=== PATIENT | male | born 1955 | race Caucasian/White ===

== ENCOUNTER 2023-06-02 14:17 | Emergency (ER) | payer BC ==
[~2023-06-02] VITALS: Ht 170.2 cm; Wt 68.0 kg
[2023-06-02] MEDS ORDERED: LISINOPRIL 10 MG (14:31)
[2023-06-02] MEDS ORDERED: ATORVASTATIN CA10 M1 PO (14:31)
[2023-06-02] MEDS ORDERED: INSULIN GL100 UNIT/2 SQ (14:31)
[2023-06-02] MEDS ORDERED: METF500 PO (14:32)
[2023-06-02 15:33] LABS: Calcium, Blood 10.1 mg/dL (8.5-10.1); Creatinine, Blood 0.82 mg/dL (0.60-1.20); Potassium, Blood 4.1 mmol/L (3.5-5.5)
[2023-06-02 16:58] VITALS: BP 122/63
== END 2023-06-02 16:59 | disposition home or self-care (01) ==
LOC: ER 14:17
PROVIDERS: Student in an Organized Health Care Education/Training Program
DX: R55 Syncope and collapse (principal); E11.9 Type 2 diabetes mellitus without complications; E86.0 Dehydration; R00.0 Tachycardia, unspecified; I10 Essential (primary) hypertension; E78.5 Hyperlipidemia, unspecified; Z20.822 Contact with and (suspected) exposure to COVID-19; Z79.4 Long term (current) use of insulin; Z79.84 Long term (current) use of oral hypoglycemic drugs; Z79.899 Other long term (current) drug therapy
CPT/HCPCS: 80048; 82947; 93005; 93010; 99284-25

== ENCOUNTER 2023-06-19 23:40 | Emergency (ER) | payer BC ==
[~2023-06-19] VITALS: Ht 182.9 cm; Wt 104.3 kg
[~2023-06-19 23:40] MED LIST: ATORVASTATIN CA10 M1 PO; INSULIN GL100 UNIT/2 SQ; LISINOPRIL 10 MG; METF500 PO
[2023-06-19 23:56] VITALS: BP 167/102
[2023-06-20 00:16] LABS: Source, Urine Clean Catch
[2023-06-20 00:28] LABS: Bilirubin, Urine Neg (Neg); Blood, Urine 2+ (Neg); Glucose Qualitative, Urine 4+ (Neg); Ketones, Urine 3+ (Neg); Leukocyte Esterase, Urine Neg (Neg); Nitrite, Urine Neg (Neg); Protein, Urine 2+ (Neg); Urobilinogen, Urine NORM (Normal)
[2023-06-20 00:29] LABS: Appearance, Urine Clear (Clear); Color, Urine Yellow (P-Yellow)
[2023-06-20 00:35] LABS: Bacteria Not Seen /hpf; Red Blood Cells, Urine 0-2 /hpf (0-2); Squamous Epithelial Cells Not Seen /hpf (Few); White Blood Cells, Urine Not Seen /hpf (0-5)
[2023-06-20 00:57] LABS: U Amphetamine Screen Not Detected; U Barbituate Screen Not Detected; U Benzodiazapine Screen Not Detected; U Buprenorphine Screen Not Detected; U Cannabinoids Screen Not Detected; U Cocaine Screen Not Detected; U Methadone Screen Not Detected; U Methamphetamine Screen Not Detected; U Opiates Screen Not Detected; U Oxycodone Screen Not Detected; U Phencyclidine Screen Not Detected; U Propoxyphene Screen Not Detected
[2023-06-20 00:58] LABS: BASOPHILS ABSOLUTE AUTO 0.06 K/mm3 (0.00-0.23); BASOPHILS PERCENT AUTO 1 % (0-2); EOSINOPHILS ABSOLUTE AUTO 0.09 K/mm3 (0.00-0.68); EOSINOPHILS PERCENT AUTO 1 % (0-6); Hematocrit 40.8 % (37.0-53.0); IMMATURE GRAN ABSOLUTE AUTO 0.02 K/mm3 (0.00-0.10); IMMATURE GRAN PERCENT AUTO 0 % (0-1); LYMPHOCYTES ABSOLUTE AUTO 2.74 K/mm3 (0.84-5.20); LYMPHOCYTES PERCENT AUTO 42 % (21-46); MONOCYTES ABSOLUTE AUTO 0.91 K/mm3 (0.16-1.47); MONOCYTES PERCENT AUTO 14 % (4-13); Mean Corpuscular HGB 32.3 pg (26.0-34.0); Mean Corpuscular HGB Conc 34.3 g/dL (31.5-36.5); Mean Corpuscular Volume 94 fL (80-100); Mean Platelet Volume 10.7 fL (9.1-12.4); NEUTROPHILS ABSOLUTE AUTO 2.72 K/mm3 (1.96-9.15); NEUTROPHILS PERCENT AUTO 42 % (41-73); Platelet Count 239 K/mm3 (150-400); RDW Coefficient Variation 13.5 % (11.7-14.2); RDW Standard Deviation 47.4 fL (35.1-46.3); Red Blood Cell Count 4.33 M/mm3 (4.30-5.90); White Blood Cell Count 6.54 K/mm3 (4.00-11.30)
[2023-06-20 01:27] LABS: Salicylate 2.8 mg/dL (2.8-20.0); Thyroid Stimulating Hormone 0.532 uIU/mL (0.360-4.800); Thyroxine (T4) 4.6 ug/dL (4.5-12.1)
[2023-06-20 01:28] LABS: Alanine Aminotransfer (ALT/SGP 101 U/L (12-78); Albumin, Blood 3.4 g/dL (3.4-5.0); Albumin/Globulin Ratio 0.8 (0.8-1.8); Alk Phos 72 U/L (50-136); Anion Gap 13 mmol/L (6-16); Aspartate Aminotrans (AST/SGOT 108 U/L (12-37); Bilirubin, Total 0.2 mg/dL (0.1-1.0); Blood Urea Nitrogen 15 mg/dL (8-24); Bun/Creatinine Ratio 18.5 (12.0-20.0); CO2, Blood 22 mmol/L (21-32); Calcium, Blood 8.5 mg/dL (8.5-10.1); Chloride, Blood 109 mmol/L (98-108); Creatinine, Blood 0.81 mg/dL (0.60-1.20); Ethanol (Alcohol), Blood, Med 360 mg/dL; Globulin, Blood 4.2 g/dL (2.2-4.0); Glomerular Filtration Rate 97 (60-); Glucose, Blood 400 mg/dL (70-99); Sodium, Blood 144 mmol/L (136-145); Total Protein, Blood 7.6 g/dL (6.4-8.2)
[2023-06-20 01:29] LABS: Acetaminophen, Random <2.0 ug/mL (10.0-30.0)
[2023-06-20] MEDS ORDERED: CHLO25 PO (01:49)
== END 2023-06-20 02:40 | disposition home or self-care (01) ==
LOC: ER 23:40
PROVIDERS: Student in an Organized Health Care Education/Training Program
DX: F10.129 Alcohol abuse with intoxication, unspecified (principal); Z79.899 Other long term (current) drug therapy; Z79.4 Long term (current) use of insulin; Z79.84 Long term (current) use of oral hypoglycemic drugs; E11.9 Type 2 diabetes mellitus without complications
CPT/HCPCS: 80053; 81001; 84436; 84443; 85025; 93005; 93010; 99284-25; G0480

== ENCOUNTER 2023-06-21 10:47 | Emergency (ER) | payer BC ==
[~2023-06-21] VITALS: Ht 167.6 cm; Wt 77.1 kg
[~2023-06-21 10:47] MED LIST changes: +CHLO25 PO
[2023-06-21 11:14] LABS: Hematocrit 42.1 % (37.0-53.0); Hemoglobin 14.5 g/dL (13.5-17.5); Mean Corpuscular HGB 32.2 pg (26.0-34.0); Mean Corpuscular HGB Conc 34.4 g/dL (31.5-36.5); Mean Corpuscular Volume 94 fL (80-100); Platelet Count 248 K/mm3 (150-400); RDW Coefficient Variation 13.3 % (11.7-14.2); RDW Standard Deviation 46.2 fL (35.1-46.3); White Blood Cell Count 8.72 K/mm3 (4.00-11.30)
[2023-06-21 11:39] LABS: BAND PERCENT MAN 19 % (0-8); BASOPHILS ABSOLUTE MAN 0.08 K/mm3 (0.00-0.23); BASOPHILS PERCENT MAN 1 % (0-2); EOSINOPHILS PERCENT MAN 0 % (0-6); LYMPHOCYTES PERCENT MAN 15 % (21-46); MONOCYTES ABSOLUTE MAN 0.69 K/mm3 (0.16-1.47); MONOCYTES PERCENT MAN 8 % (4-13); MYELOCYTE ABSOLUTE MAN 0.08 K/mm3 (0.00-0.00); MYELOCYTE PERCENT MAN 1 % (0-0); NEUTROPHILS ABSOLUTE MAN 6.54 K/mm3 (1.96-9.15); SEG NEUTROPHILS PERCENT MAN 56 % (41-73); TOTAL CELLS COUNTED 100
[2023-06-21 11:48] LABS: Alanine Aminotransfer (ALT/SGP 109 U/L (12-78); Albumin, Blood 3.6 g/dL (3.4-5.0); Albumin/Globulin Ratio 0.7 (0.8-1.8); Alk Phos 76 U/L (50-136); Anion Gap 16 mmol/L (6-16); Aspartate Aminotrans (AST/SGOT 149 U/L (12-37); Bilirubin, Total 0.5 mg/dL (0.1-1.0); Blood Urea Nitrogen 14 mg/dL (8-24); Bun/Creatinine Ratio 18.8 (12.0-20.0); CO2, Blood 20 mmol/L (21-32); Calcium, Blood 9.5 mg/dL (8.5-10.1); Chloride, Blood 99 mmol/L (98-108); Creatinine, Blood 0.75 mg/dL (0.60-1.20); Globulin, Blood 5.3 g/dL (2.2-4.0); Glomerular Filtration Rate 99 (60-); Glucose, Blood 157 mg/dL (70-99); Potassium, Blood 5.5 mmol/L (3.5-5.5); Sodium, Blood 135 mmol/L (136-145); Total Protein, Blood 8.9 g/dL (6.4-8.2)
[2023-06-21 11:49] LABS: Ethanol (Alcohol), Blood, Med <3 mg/dL
[2023-06-21 11:58] LABS: U Amphetamine Screen Not Detected; U Barbituate Screen Not Detected; U Benzodiazapine Screen Not Detected; U Buprenorphine Screen Not Detected; U Cannabinoids Screen Not Detected; U Cocaine Screen Not Detected; U Methadone Screen Not Detected; U Methamphetamine Screen Not Detected; U Opiates Screen DETECTED; U Oxycodone Screen Not Detected; U Phencyclidine Screen Not Detected; U Propoxyphene Screen Not Detected
[2023-06-21 12:02] LABS: Base Excess Venous 2.3 mmol/L; Bicarbonate Venous 26.5 mmol/L (24.0-30.0); PCO2 Venous 37.1 mmHg (38-42); pH Blood Venous 7.46 (7.34-7.37)
[2023-06-21 13:45] VITALS: BP 159/84
== END 2023-06-21 14:23 | disposition left against medical advice (07) ==
LOC: ER 10:47
PROVIDERS: Emergency Medicine
DX: R55 Syncope and collapse (principal); F10.10 Alcohol abuse, uncomplicated; Y90.0 Blood alcohol level of less than 20 mg/100 ml; F11.90 Opioid use, unspecified, uncomplicated; E11.65 Type 2 diabetes mellitus with hyperglycemia; I10 Essential (primary) hypertension; E78.5 Hyperlipidemia, unspecified; Z91.119 Patient's noncompliance with dietary regimen due to unspecified reason; Z53.29 Procedure and treatment not carried out because of patient's decision for other reasons; Z79.4 Long term (current) use of insulin; Z79.84 Long term (current) use of oral hypoglycemic drugs; Z79.899 Other long term (current) drug therapy
CPT/HCPCS: 70450; 71045; 80053; 82803; 82947; 84484; 85025; 93005; 93010; 99285-25; J7030

== ENCOUNTER 2023-07-05 11:45 | Inpatient (IN) | payer BC ==
[~2023-07-05] VITALS: Ht 175.3 cm; Wt 65.1 kg
[~2023-07-05 11:45] MED LIST changes: +INSULIN GL100 UNIT/2 SC; -INSULIN GL100 UNIT/2 SQ; +LISI10 PO; -LISINOPRIL 10 MG
[2023-07-05 14:23] LABS: BASOPHILS ABSOLUTE AUTO 0.06 K/mm3 (0.00-0.23); BASOPHILS PERCENT AUTO 0 % (0-2); EOSINOPHILS ABSOLUTE AUTO 0.02 K/mm3 (0.00-0.68); EOSINOPHILS PERCENT AUTO 0 % (0-6); Hematocrit 40.8 % (37.0-53.0); Hemoglobin 11.5 g/dL (13.5-17.5); IMMATURE GRAN ABSOLUTE AUTO 0.15 K/mm3 (0.00-0.10); IMMATURE GRAN PERCENT AUTO 1 % (0-1); LYMPHOCYTES ABSOLUTE AUTO 0.59 K/mm3 (0.84-5.20); LYMPHOCYTES PERCENT AUTO 4 % (21-46); MONOCYTES ABSOLUTE AUTO 1.58 K/mm3 (0.16-1.47); MONOCYTES PERCENT AUTO 11 % (4-13); Mean Corpuscular HGB 31.8 pg (26.0-34.0); Mean Corpuscular HGB Conc 28.2 g/dL (31.5-36.5); Mean Corpuscular Volume 113 fL (80-100); Mean Platelet Volume 11.9 fL (9.1-12.4); NEUTROPHILS ABSOLUTE AUTO 11.57 K/mm3 (1.96-9.15); NEUTROPHILS PERCENT AUTO 83 % (41-73); Platelet Count 328 K/mm3 (150-400); RDW Standard Deviation 53.7 fL (35.1-46.3); Red Blood Cell Count 3.62 M/mm3 (4.30-5.90); White Blood Cell Count 13.97 K/mm3 (4.00-11.30)
[2023-07-05 14:32] LABS: Bicarbonate Venous 5.1 mmol/L (24.0-30.0); PCO2 Venous 28.3 mmHg (38-42); PO2 Venous 63.6 mmHg (38-42); pH Blood Venous > 6.80 (7.34-7.37)
[2023-07-05 14:34] LABS: Base Excess Venous -30.3 mmol/L
[2023-07-05 14:54] LABS: Albumin, Blood 2.6 g/dL (3.4-5.0); Albumin/Globulin Ratio 0.6 (0.8-1.8); Bilirubin, Total 0.6 mg/dL (0.1-1.0); Bun/Creatinine Ratio 19.5 (12.0-20.0); Calcium, Blood 8.4 mg/dL (8.5-10.1); Creatinine, Blood 3.07 mg/dL (0.60-1.20); Ethanol (Alcohol), Blood, Med <3 mg/dL; Globulin, Blood 4.3 g/dL (2.2-4.0); Magnesium, Blood 3.3 mg/dL (1.6-2.4); Total Protein, Blood 6.9 g/dL (6.4-8.2)
[2023-07-05 16:40] LABS: Calcium, Ionized (POC) 1.21 mmol/L (1.10-1.46); Chloride (POC) 101 mmol/L (98-108); Creatinine (POC) 3.3 mg/dL (0.8-1.3); Glucose (ISTAT POC) >700 mg/dL (70-99); Hemoglobin (POC) 11.9 g/dL (13.5-17.5); Potassium (POC) 5.8 mmol/L (3.5-5.5); Sodium (POC) 130 mmol/L (135-148); Total CO2 (POC) 8 mmol/L (21-32)
[2023-07-05 17:45] LABS: International Normalized Ratio 1.03; Prothrombin Time Results 10.8 Sec (9.7-11.5)
[2023-07-05 18:14] LABS: Albumin, Blood 2.4 g/dL (3.4-5.0); Anion Gap 33 mmol/L (6-16); Blood Urea Nitrogen 63 mg/dL (8-24); Bun/Creatinine Ratio 21.8 (12.0-20.0); CO2, Blood 8 mmol/L (21-32); Calcium, Blood 8.6 mg/dL (8.5-10.1); Chloride, Blood 95 mmol/L (98-108); Creatinine, Blood 2.89 mg/dL (0.60-1.20); Glomerular Filtration Rate 23 (60-); Glucose, Blood 752 mg/dL (70-99); Potassium, Blood 5.8 mmol/L (3.5-5.5); Sodium, Blood 136 mmol/L (136-145)
[2023-07-05 20:02] LABS: Source, Urine Foley catheter
[2023-07-05 20:13] LABS: Appearance, Urine Hazy (Clear); Bilirubin, Urine Neg (Neg); Blood, Urine 5+ (Neg); Color, Urine Yellow (P-Yellow); Glucose Qualitative, Urine 4+ (Neg); Ketones, Urine 4+ (Neg); Leukocyte Esterase, Urine Neg (Neg); Nitrite, Urine Neg (Neg); Protein, Urine 3+ (Neg); Urobilinogen, Urine NORM (Normal)
[2023-07-05 20:23] LABS: Amorphous Light (0-Heavy); Granular Casts 0-2 /lpf (0); Hyaline Casts 0-2 /lpf (0-2); Red Blood Cells, Urine 0-2 /hpf (0-2); Squamous Epithelial Cells Not Seen /hpf (Few); White Blood Cells, Urine 0-2 /hpf (0-5)
[2023-07-05 20:24] LABS: Bacteria Few /hpf
[2023-07-05 20:45] LABS: Magnesium, Blood 2.5 mg/dL (1.6-2.4)
[2023-07-05 20:53] LABS: U Amphetamine Screen Not Detected; U Barbituate Screen Not Detected; U Benzodiazapine Screen Not Detected; U Buprenorphine Screen Not Detected; U Cannabinoids Screen Not Detected; U Cocaine Screen Not Detected; U Methadone Screen Not Detected; U Methamphetamine Screen Not Detected; U Opiates Screen Not Detected; U Oxycodone Screen Not Detected; U Phencyclidine Screen Not Detected; U Propoxyphene Screen Not Detected
[2023-07-05 21:06] LABS: Albumin, Blood 2.3 g/dL (3.4-5.0); Anion Gap 21 mmol/L (6-16); Blood Urea Nitrogen 60 mg/dL (8-24); CO2, Blood 13 mmol/L (21-32); Calcium, Blood 7.7 mg/dL (8.5-10.1); Chloride, Blood 107 mmol/L (98-108); Creatinine, Blood 2.61 mg/dL (0.60-1.20); Glomerular Filtration Rate 26 (60-); Glucose, Blood 558 mg/dL (70-99); Phosphorus, Blood 3.9 mg/dL (2.5-4.9); Potassium, Blood 4.7 mmol/L (3.5-5.5); Sodium, Blood 141 mmol/L (136-145)
[2023-07-06] VITALS (39 sets, daily range): BP systolic 104–191; BP diastolic 36–144
[2023-07-06 01:46] LABS: Albumin, Blood 2.2 g/dL (3.4-5.0); Anion Gap 13 mmol/L (6-16); Blood Urea Nitrogen 63 mg/dL (8-24); Bun/Creatinine Ratio 25.6 (12.0-20.0); CO2, Blood 18 mmol/L (21-32); Calcium, Blood 7.7 mg/dL (8.5-10.1); Chloride, Blood 114 mmol/L (98-108); Creatinine, Blood 2.46 mg/dL (0.60-1.20); Glomerular Filtration Rate 28 (60-); Glucose, Blood 288 mg/dL (70-99); Magnesium, Blood 2.2 mg/dL (1.6-2.4); Phosphorus, Blood 1.9 mg/dL (2.5-4.9); Potassium, Blood 4.3 mmol/L (3.5-5.5); Sodium, Blood 145 mmol/L (136-145)
[2023-07-06 06:46] LABS: Magnesium, Blood 2.3 mg/dL (1.6-2.4)
[2023-07-06 06:48] LABS: Albumin, Blood 2.3 g/dL (3.4-5.0); Albumin/Globulin Ratio 0.6 (0.8-1.8); Bilirubin, Total 0.3 mg/dL (0.1-1.0); Bun/Creatinine Ratio 27.4 (12.0-20.0); Calcium, Blood 8.3 mg/dL (8.5-10.1); Creatinine, Blood 2.3 mg/dL (0.60-1.20); Globulin, Blood 3.7 g/dL (2.2-4.0); Phosphorus, Blood 1.5 mg/dL (2.5-4.9)
--- NOTE | 2023-07-06 09:00 | NUR ---
INITIAL ASSESSMENT PATIENT ARRIVED FROM ED AT 0835. PATIENT RESPONDING TO NOXIOUS STIMULI. PATIENT RESTLESS AND FIDGETY IN BED. PATIENT HAS MUMBLED SPEECH AT TIMES WHEN NOXIOUS STIMULI APPLIED OR NURSES PROVIDING CARE. CIWA SCORE OF 8. PATIENT HAS TEMP OF 99.3 DEGREES FAHRENHEIT. LUNGS COARSE THROUGHOUT. PATIENT ON 8 L OXYMASK TO KEEP SATS 90% AND GREATER. PATIENT HAS OCCASIONAL, MOIST, NONPRODUCTIVE COUGH. PATIENT IN SR, HR IN THE LOW 100S. SBP IN THE 130S. PATIENT NPO. FLYNN DRAINING YELLOW COLORED URINE. FACE FLUSHED. LARGE BRUISE TO R FOWLER. D5 1/2 NS INFUSING AT 150 MLS/ HOUR AND INSULIN DRIP INFUSING AT 1 UNIT/ HOUR. PATIENT RECEIVING 30 MM KPHOS REPLACEMENT AT THIS TIME. BED LOW, CALL LIGHT IN REACH. CARE CONTINUES.
[2023-07-06 09:12] LABS: BASOPHILS ABSOLUTE AUTO 0.03 K/mm3 (0.00-0.23); BASOPHILS PERCENT AUTO 0 % (0-2); EOSINOPHILS ABSOLUTE AUTO 0.01 K/mm3 (0.00-0.68); EOSINOPHILS PERCENT AUTO 0 % (0-6); Hematocrit 36.3 % (37.0-53.0); Hemoglobin 12.2 g/dL (13.5-17.5); IMMATURE GRAN ABSOLUTE AUTO 0.13 K/mm3 (0.00-0.10); IMMATURE GRAN PERCENT AUTO 1 % (0-1); LYMPHOCYTES ABSOLUTE AUTO 0.44 K/mm3 (0.84-5.20); LYMPHOCYTES PERCENT AUTO 3 % (21-46); MONOCYTES ABSOLUTE AUTO 1.37 K/mm3 (0.16-1.47); MONOCYTES PERCENT AUTO 8 % (4-13); Mean Corpuscular HGB 31.6 pg (26.0-34.0); Mean Corpuscular HGB Conc 33.6 g/dL (31.5-36.5); NEUTROPHILS ABSOLUTE AUTO 14.64 K/mm3 (1.96-9.15); NEUTROPHILS PERCENT AUTO 88 % (41-73); Platelet Count 257 K/mm3 (150-400); RDW Coefficient Variation 12.7 % (11.7-14.2); RDW Standard Deviation 43.6 fL (35.1-46.3); Red Blood Cell Count 3.86 M/mm3 (4.30-5.90); White Blood Cell Count 16.62 K/mm3 (4.00-11.30)
[2023-07-06 09:16] LABS: Mean Corpuscular Volume 94 fL (80-100)
[2023-07-06 09:36] LABS: Albumin, Blood 2.4 g/dL (3.4-5.0); Anion Gap 9 mmol/L (6-16); Blood Urea Nitrogen 65 mg/dL (8-24); CO2, Blood 22 mmol/L (21-32); Calcium, Blood 8.4 mg/dL (8.5-10.1); Chloride, Blood 118 mmol/L (98-108); Creatinine, Blood 2.24 mg/dL (0.60-1.20); Glomerular Filtration Rate 31 (60-); Glucose, Blood 208 mg/dL (70-99); Magnesium, Blood 2.3 mg/dL (1.6-2.4); Phosphorus, Blood 1.8 mg/dL (2.5-4.9); Potassium, Blood 4.1 mmol/L (3.5-5.5); Sodium, Blood 149 mmol/L (136-145)
--- NOTE | 2023-07-06 12:00 | NUR ---
TEMP 99.5 DEGREES FAHRENHEIT. HR IN THE LOW 100S. SBP 170S TO 190S. CIWA 11. PRN PHENOBARBITOL GIVEN.
--- NOTE | 2023-07-06 15:45 | NUR ---
PATIENT HAS TEMP OF 99.0 DEGREES FAHRENHEIT. HR IN THE LOW 100S. SBP IN THE 1-TEENS. INSULIN AT 2 UNITS/ HOUR. PATIENT DECREASED FROM 8 TO 6 L OXYMASK. CIWA SCORE OF 8. NO OTHER ACUTE CHANGES TO NOTE ON AT THIS TIME. BED LOW, CALL LIGHT IN REACH. CARE CONTINUES.
--- NOTE | 2023-07-06 19:00 | NUR ---
ASSUMED CARE OF PT AT THIS TIME. PT ANXIOUS IN BED WITH BUE RESTRAINTS INTACT. PT IS WIGGLING AND MOVING HEAD BACK AND FORTH. MINIMAL BEHAVIORS AT THIS TIME. WILL NEED CONSISTENT BOOSTING AND MONITORING FOR LINES AND CORD PROTECTION. SEE FULL ASSESSMENT FOR FURTHER INFORMATION.
--- NOTE | 2023-07-06 19:07 | NUR ---
SHIFT SUMMARY PATIENT REMAINED RESPONDING TO NOXIOUS STIMULI. PATIENT RESTLESS IN BED AT TIMES. CIWAS UP TO 18 THIS SHIFT. PRN PHENOBARBITAL GIVEN 3 TIMES. PATIENT HAD TMAX OF 99.5 DEGREES FAHRENHEIT. PATIENT ON 6 TO 8 L OXYMASK THIS SHIFT. COARSE LUNGS AND COARSE. PATIENT SR TO ST, HR 90S TO 1-TEENS. SBP LOW 100S TO 190S. NO BM THIS SHIFT. PATIENT REMAINED NPO. 2450 MLS OF URINE OUT FROM FLYNN THIS SHIFT. NO CHANGES TO SKIN NOTED. NS AT 125 MLS/ HOUR. PATIENT GIVEN LONG ACTING INSULIN AND INSULIN DRIP WILL BE SHUT OFF AFTER AN HOUR. PATIENT RECEIVED KPHOS REPLACEMENT THIS AM. BED LOW, CALL LIGHT IN REACH. REPORT GIVEN TO ONCOMING SERVICE ATTENDANT CAFETERIA NURSE.
[2023-07-07] VITALS (48 sets, daily range): BP systolic 82–197; BP diastolic 56–119
[2023-07-07 04:32] LABS: Hematocrit 34.5 % (37.0-53.0); Hemoglobin 11.6 g/dL (13.5-17.5); Mean Corpuscular HGB Conc 33.6 g/dL (31.5-36.5); Mean Corpuscular Volume 95 fL (80-100); Mean Platelet Volume 11.6 fL (9.1-12.4); Platelet Count 197 K/mm3 (150-400); RDW Coefficient Variation 13.2 % (11.7-14.2); RDW Standard Deviation 46.1 fL (35.1-46.3); Red Blood Cell Count 3.62 M/mm3 (4.30-5.90); White Blood Cell Count 9.87 K/mm3 (4.00-11.30)
[2023-07-07 04:57] LABS: Albumin, Blood 2.1 g/dL (3.4-5.0); Albumin/Globulin Ratio 0.6 (0.8-1.8); Bilirubin, Total 0.2 mg/dL (0.1-1.0); Bun/Creatinine Ratio 29.2 (12.0-20.0); Creatinine, Blood 1.61 mg/dL (0.60-1.20); Globulin, Blood 3.6 g/dL (2.2-4.0); Magnesium, Blood 2.1 mg/dL (1.6-2.4); Phosphorus, Blood 2.9 mg/dL (2.5-4.9); Potassium, Blood 3.7 mmol/L (3.5-5.5); Total Protein, Blood 5.7 g/dL (6.4-8.2)
--- NOTE | 2023-07-07 06:09 | NUR ---
END OF SHIFT SUMMARY PT THRASHES IN BED PULLING AT RESTRAINTS. DOES NOT ANSWER ANY QUESTIONS, JUST MUMBLES AND GROANS INTERMITTENTLY. PHENOBARB GIVEN WITH LITTLE RESULTS W/CIWA 8-16. PRECEDEX STARTED AND CURRENTLY AT 0.5 AT THIS TIME. VSS WITH NO ACUTE CHANGES THIS SHIFT. WILL CONTINUE TO MONITOR UNTIL REPORT GIVEN TO AM RN.
--- NOTE | 2023-07-07 08:00 | NUR ---
INITIAL ASSESSMENT PATIENT RESPONDING TO VERBAL STIMULI WITH MOVEMENT OF HEAD. PATIENT RESTLESS AT TIMES. PATIENT HAS MUMBLED SPEECH AT TIMES. PATIENT HAS TEMP OF 100.0 DEGREES FAHRENHEIT THIS AM. LUNGS CLEAR THROUGHOUT. PATIENT HAS OCCASIONAL, MOIST COUGH. PATIENT ON 7 L OXYMASK TO KEEP SATS 90% AND GREATER. PATIENT IN SR, HR 70S TO 80S. SBP IN THE 140S. ABD MILDLY DISTENDED, SOFT, WITH NORMOACTIVE BOWEL SOUNDS NOTED. PATIENT NPO AT THIS TIME. FLYNN DRAINING YELLOW COLORED URINE. FACE FLUSHED. BRUISE NOTED TO R LEG. NS INFUSING AT 125 MLS/ HOUR. PRECEDEX AT 0.5 MCG/ KG/ HOUR. BED LOW, CALL LIGHT IN REACH. CARE CONTINUES.
--- NOTE | 2023-07-07 12:00 | NUR ---
PATIENT AFEBRILE. HR IN THE 80S. SBP 130S TO 150S. PATIENT ON 6 L NC TO KEEP SATS 90% AND GREATER. PATIENT REMAINS ON PRECEDEX DRIP. NO OTHER ACUTE CHANGES TO NOTE ON AT THIS TIME. BED LOW, CALL LIGHT IN REACH. CARE CONTINUES.
--- NOTE | 2023-07-07 15:37 | NUR ---
PATIENT HAS TEMP OF 100.8 DEGREES FAHRENHEIT. PRECEDEX TO 0.7 MCG/ KG/ HOUR FOR CIWA OF 18. HR IN THE LOW 100S. SBP IN THE 150S. BLOOD SUGAR OF 226. BED LOW, CALL LIGHT IN REACH. CARE CONTINUES.
--- NOTE | 2023-07-07 18:47 | NUR ---
SHIFT SUMMARY PATIENT REMAINED EITHER SLEEPING SOUNDLY OR RESTLESS AND FIGHTING RESTRAINTS AND TRYING TO GET OUT OF BED. PATIENT HAS REMAINED ON PRECEDEX RANGING FROM 0.3 TO 0.7 MCG/ KG/ HOUR. PATIENT CURRENTLY ON PRECEDEX AT 0.5 MCG/ KG/ HOUR. HIGHEST CIWA WAS 18 THIS SHIFT. PATIENT GIVEN WI TYLENOL ONCE THIS SHIFT. PATIENT HAD HIGH TEMP OF 100.8 DEGREES FAHRENHEIT. PATIENT ON O2 FROM 6 L NC UP TO 15 L OXYMASK THIS SHIFT. PATIENT CURRENTLY ON 7 L OXYMASK TO KEEP SATS 90% AND GREATER. PATIENT CONTINUES TO HAVE MOIST, NONPRODUCTIVE COUGH. HR 70S TO 130S. TACHCARDIC WHEN AGITATED. SBP 80S TO 190S. HTN WHEN AGITATED AND FLAILING AROUND BED. 1 BM THIS SHIFT. PATIENT REMAINED NPO. FLYNN DRAINED 3950 MLS OF YELLOW COLORED URINE THIS SHIFT. PATIENT HAD SEVERAL IVS GO BAD IN BILAT ARMS; BRUISES NOTED. 2 PGS PLACED THIS SHIFT; GOOD BLOOD RETURN. LR INFUSING AT 100 MLS/ HOUR. NS TKO. LONG ACTING INSULIN INCREASED FROM DAILY TO BID THIS SHIFT. PATIENT HAD COMPLETE BEDBATH. BLOOD SUGARS STAYED IN 200S. BED LOW, CALL LIGHT IN REACH. REPORT WILL BE GIVEN TO ASSUMING HOMOEOPATH NURSE SHORTLY.
--- NOTE | 2023-07-07 19:09 | NUR ---
ASSUMED CARE OF PT AT PT RESTLESS IN BED MOVING HEAD AND FEAT CONSTANTLY. VSS. O2 INCREASED TO 8 LPM VIA OXY MASK D/T 90% SATS AT THIS TIME. RR 20'S. SEE FULL ASSESSMENT FOR FURTHER INFORMATION.
--- NOTE | 2023-07-07 19:30 | NUR ---
CALLED PT SPOUSE SAURAV MEJIA BACK. SHE WAS WANTING AN UPDATE ON HOW PT WAS DOING. SHE WAS INFORMED OF PT MENTATION AND WHAT WE ARE DOING FOR TREATMENT AT THIS TIME. PHONE CALL WAS VERY SHORT WITH MINIMAL TALKING.
[2023-07-08] VITALS (46 sets, daily range): BP systolic 83–159; BP diastolic 57–97
[2023-07-08 04:05] LABS: Albumin, Blood 2.5 g/dL (3.4-5.0); Albumin/Globulin Ratio 0.5 (0.8-1.8); Bilirubin, Total 0.4 mg/dL (0.1-1.0); Calcium, Blood 9.1 mg/dL (8.5-10.1); Creatinine, Blood 1.39 mg/dL (0.60-1.20); Globulin, Blood 4.7 g/dL (2.2-4.0); Phosphorus, Blood 1.5 mg/dL (2.5-4.9); Potassium, Blood 2.9 mmol/L (3.5-5.5); Total Protein, Blood 7.2 g/dL (6.4-8.2)
--- NOTE | 2023-07-08 04:32 | NUR ---
NT SUCTION INITIATED WITH LITTLE RESULTS D/T PT BEING UNCOOPERATIVE. PT SATS IN MID 80'S WITH EXERTION. 2 DOSES OF PHENOBARB GIVEN IWTH LITTLE RESULTS FOR CIWA OF 16 AND PT IS UNCOOPERATIVE WITH CARE. PT YELLING OUT AND TRYING TO GET OUT OF BED. BUE RESTRAINTS IN PLACE AT THIS TIME. WILL CONTINUE TO MONITOR. SPO2 CURRENTLY AT 92% AFTER NT SUCTION DONE BY THIS RN AND FIDEL CASTILLO.
--- NOTE | 2023-07-08 05:37 | NUR ---
END OF SHIFT SUMMARY PT HAS BEEN IN AND OUT OF SLEEP/ THRASHING IN BED CYCLES. DOES NOT FOLLOW COMMANDS. CIWA RANGING 0-16 THIS SHIFT. MOSTLY AGITATION, SWEATING, AND TREMORS PRESENT. NO VISITORS THIS SHIFT. SPOUSE DID CALL FOR UPDATE. PT YELLS OUT WHEN MOVING LEGS BACK IN BED AND IS VERY STIFF WITH MOVEMENT. ORDER FOR FENTYNAL ACHIEVED AND GIVEN WITH LITTLE RESULTS. CARDIAC- DIFFICULT TO ACHIEVE BELEIVABLE BP D/T PT UNWILLING TO LAY STILL WITH BP CUFF INFLATIONS. HR 90'S AND SR. RESP- CURRENTLY RANGING 90-95% SPO2 ON 15 L OXYMASK. SATS DEPEND ON PT MOVEMENTS IN BED. RR 20'S. GI,- NPO. NO BM THIS SHIFT. SEE I/O CHARTING FOR URINE OUTPUT. NO OTHER ACUTE ISSUES TO REPORT AT THIS TIME. WILL CONTINUE TO MONITOR UNTIL REPORT GIVEN TO AM ANNA.
[2023-07-08 08:49] LABS: PCO2 Arterial 36.6 mmHg (35-45)
--- NOTE | 2023-07-08 08:51 | NUR ---
AM NOTE.... ASSUMED CARE OF PT AT 0700, PT IS CONFUSED AND UNCOOPERATIVE WITH CARE. PT IS UNABLE TO FOLLOW ANY COMMANDS OR ANSWER ANY QUESTIONS. HE IS ON PRECEDEX AT 0.7MCG/KG/HR AT THIS DOSE HE IS THRASHING AROUND THE BED AND ATTEMPTING TO PULL ON ALL CORDS/LINES. HE IS ON 15L OXYMASK WITH O2 SATS IN THE LOW 90'S. L/S CLEAR IN THE UPPER LOBES WITH FINE CRACKLES NOTED IN THE RML, RLL AND LLL.HE IS IN SR/ST IN THE 70'S-100'S BP IS STABLE AT THIS TIME WITH MAPS>65. BT PRESENT AND HYPOACTIVE, ABD IS FIRM TO PALPATION. FLYNN IS PATENT AND DRAINING TO GRAVITY. WILL CONTINUE TO MONITOR.
[2023-07-08 13:20] LABS: Source, Urine Foley catheter
[2023-07-08 13:23] LABS: Bilirubin, Urine Neg (Neg); Blood, Urine 3+ (Neg); Color, Urine Yellow (P-Yellow); Glucose Qualitative, Urine 4+ (Neg); Ketones, Urine 2+ (Neg); Leukocyte Esterase, Urine 1+ (Neg); Nitrite, Urine Neg (Neg); Protein, Urine 2+ (Neg); Specific Gravity, Urine 1.015 (1.003-1.022); Urobilinogen, Urine NORM (Normal)
[2023-07-08 13:29] LABS: Appearance, Urine Hazy (Clear)
[2023-07-08 13:34] LABS: Bacteria Rare /hpf; Mucus Mod (0-Heavy); Squamous Epithelial Cells Rare /hpf (Few)
[2023-07-08 15:00] LABS: Adenovirus Not Detected (NOT DETECT); Coronavirus 229E Not Detected (NOT DETECT); Coronavirus HKU1 Not Detected (NOT DETECT); Coronavirus NL63 Not Detected (NOT DETECT); Coronavirus OC43 Not Detected (NOT DETECT); Human Metapneumovirus Not Detected (NOT DETECT); Human Rhinovirus/Enterovirus Not Detected (NOT DETECT); Influenza A/2009-H1 Not Detected (NOT DETECT); Influenza A/H1 Not Detected (NOT DETECT); Influenza A/H3 Not Detected (NOT DETECT); Influenza B Not Detected (NOT DETECT); Parainfluenza Virus 1 Not Detected (NOT DETECT); Parainfluenza Virus 2 Not Detected (NOT DETECT); Parainfluenza Virus 3 Not Detected (NOT DETECT); SARS-Cov-2 (COVID-19), BioFire Not Detected (NOT DETECT)
[2023-07-08 15:01] LABS: Bordetella pertussis Not Detected (NOT DETECT); Chlamydophila pneumoniae Not Detected (NOT DETECT); Mycoplasma pneumoniae Not Detected (NOT DETECT); Parainfluenza Virus 4 Not Detected (NOT DETECT); Respiratory Syncytial Virus Not Detected (NOT DETECT)
[2023-07-08 15:12] LABS: Albumin, Blood 2.2 g/dL (3.4-5.0); Anion Gap 5 mmol/L (6-16); Blood Urea Nitrogen 29 mg/dL (8-24); Bun/Creatinine Ratio 20.6 (12.0-20.0); CO2, Blood 35 mmol/L (21-32); Calcium, Blood 8.8 mg/dL (8.5-10.1); Chloride, Blood 116 mmol/L (98-108); Creatinine, Blood 1.41 mg/dL (0.60-1.20); Glomerular Filtration Rate 55 (60-); Glucose, Blood 110 mg/dL (70-99); Phosphorus, Blood 3.5 mg/dL (2.5-4.9); Potassium, Blood 2.8 mmol/L (3.5-5.5); Sodium, Blood 156 mmol/L (136-145)
--- NOTE | 2023-07-08 17:21 | NUR ---
SHIFT SUMMARY... THE PT CONTINUES TO BE ON A PRECEDEX DRIP 1-1.4MCG/KG/HR. PT HAS CWIA SCORES 16-18 AND MEDICATED PER EMAR. THE PT CONTINUES TO BE ON A OXYMIZER 8-15L TO KEEP O2 SATS>89%. L/S CONTINUE TO BE CLEAR IN THE UPPER LOBES WITH CRACKLES NOTED IN THE BASES. FLYNN IS PATENT AND DRAINING TO GRAVITY. NO BM THIS SHIFT. A DOBHOFF WAS PLACED TO START TUBE FEEDS PER ORDERS. RESTRAINTS IN PLACE TO KEEP THE PT FROM PULLING OUT LINES AND FEEDING TUBE. WILL CONTINUE TO MONITOR UNTIL REPORT IS GIVEN TO ONCOMING RN.
--- NOTE | 2023-07-08 18:11 | NUR ---
TUBE FEEDS STARTED.... TUBE FEEDS STARTED AT 1800 PER ORDERS.
--- NOTE | 2023-07-08 19:18 | NUR ---
ASSUMED CARE OF PT AT 1900 PT RESTING QUIETLY IN BED WITH NO VISITORS. DESATING TO MID 80'S WHILE SLEEPING. OXYMIZER SET TO 12 LPM FROM 7 LPM TO HOLE SPO2 >90%. SEE FULL ASSESSMENT FOR FURTHER INFORMATION.
--- NOTE | 2023-07-08 21:12 | NUR ---
PT DESATING TO MID 80'S WITH NO RELIEF. CALLED [facility] AND ONTAINED ORDER FOR HEATED HIGH FLOW NC. RT SET UP AND PT IS NOW 50 LPM AT 90%. SPO2 >90% AT THIS TIME.
[2023-07-09] VITALS (92 sets, daily range): BP systolic 99–206; BP diastolic 65–128
--- NOTE | 2023-07-09 01:42 | NUR ---
ASSUMED CARE OF PT AT 0130 THIS MORNING. REPORT RECEIVED. PT PRESENTS IN BED ASLEEP. WILL ASSESS WITH 0200 BLOOD GLUCOSE LEVEL. WILL REVIEW CHART AND PLAN OF CARE FOR THIS PT.
[2023-07-09 04:50] LABS: Albumin, Blood 1.9 g/dL (3.4-5.0); Albumin/Globulin Ratio 0.5 (0.8-1.8); Bilirubin, Total 0.3 mg/dL (0.1-1.0); Creatinine, Blood 1.22 mg/dL (0.60-1.20); Magnesium, Blood 1.8 mg/dL (1.6-2.4); Phosphorus, Blood 1.5 mg/dL (2.5-4.9); Potassium, Blood 3.2 mmol/L (3.5-5.5); Total Protein, Blood 5.9 g/dL (6.4-8.2)
--- NOTE | 2023-07-09 06:32 | NUR ---
PT HAS TOLERATED TURNS Q 2 HOURS. HAS REQUIRED SEVERAL DOSES OF 2 MG LORAZEPAM. PRECEDEX DRIP CONTINUES AT 0.7 MCG'S/KG/HOUR. TOLERATING TUBE FEEDING AT GOAL. Q 2 HOUR BLOOD GLUCOSE CONTINUES. WILL CONTINUE TO MONITOR PT, AND WILL REPORT OFF TO ONCOMING RN.
--- NOTE | 2023-07-09 07:46 | NUR ---
AM NOTE... ASSUMED CARE OF PT AT 0700. PT IS ON PRECEDEX DRIP AT 0.7MCG/KG/HR WITH PRN IV ATIVAN PUSHES. HE IS NOW ON AIRVO AT 45L AND 65% WITH O2 SATS>90% L/S CLEAR IN THE UPPER LOBES COARSE IN THE LOWER LOBES. RR IS IN THE HIGH 20'S TO 30'S. HE IS IN SR IN THE 90'S BP IS STABLE WITH MAPS>65 HE BECOMES HYPERTENSIVE WHEN AGITATED. NG TUBE IS PATENT AT 65 WITH TUBE FEEDS RUNNING PER ORDERS AT 30MLS/HR WHICH IS THE GOAL RATE. BT PRESENT AND HYPOACTIVE, ABD IS SOFT TO PALPATION. PT IS DIAPHORETIC WITH A TEMP OF 101.2. WILL CONTINUE TO MONITOR.
[2023-07-09 16:57] LABS: Phosphorus, Blood 2.1 mg/dL (2.5-4.9); Potassium, Blood 2.9 mmol/L (3.5-5.5)
--- NOTE | 2023-07-09 18:21 | NUR ---
SHIFT SUMMARY.... PT'S PRECEDEX DRIP HAS BEEN OFF FOR SEVERAL HOURS AND PT HAS BEEN DOING WELL WITH PRN ATIVAN IV PUSHES. THE PT CONTINUES TO BE CONFUSED, UNABLE TO FOLLOW ANY COMMANDS OR TRACK MOVEMENT BUT WHEN AGITATED WILL PULL ON ALL THE LINES/TUBES HE IS ABLE TO GRAB. THE PT'S TUBE FEEDS ARE RUNNING PER ORDERS AT 20MLS/HR WITH 200MLS/Q4. TMAX THIS SHIFT WAS 102.3 HE WAS GIVEN TYLENOL PER EMAR. PT HAS NOT HAD A BM THIS SHIFT, STOOL SOFTNERS WERE STARTED TODAY. PT BECAME VERY HYPERTENSIVE THIS AFTERNOON WITH SBPs IN THE 190'S PROVIDER WAS NOTIFIED AND NEW ORDERS WERE GIVEN FOR PRN AND SCHEDULED HYPERTENSIVE MEDICATIONS. WILL CONTINUE TO MONITOR UNTIL REPORT IS GIVEN TO ONCOMING RN.
--- NOTE | 2023-07-09 20:00 | NUR ---
ASSUMED CARE OF PT AT 1900. REPORT RECEIVED AT BEDSIDE. PT PRESENTS IN BED. RESTING AT THIS TIME. HAS AIRVO AT 45 L/M WITH 61% FIO2. PT BECOMING RESTLESS. SOME ELEVATION IN BLOOD PRESSURE. WILL REVIEW CHART AND PLAN OF CARE FOR THIS PT.
--- NOTE | 2023-07-09 21:41 | NUR ---
ADMINISTERED 20 MG LABTELOL FOR ELEVATING BLOOD PRESSURES. PT REMAINS SOMEWHAT RESTLESS. PULLS AT RESTRAINTS. SEE CIWA SCORING FOR DETAILS.
[2023-07-10] VITALS (89 sets, daily range): BP systolic 119–181; BP diastolic 62–111
[2023-07-10 04:58] LABS: BASOPHILS ABSOLUTE AUTO 0.03 K/mm3 (0.00-0.23); BASOPHILS PERCENT AUTO 0 % (0-2); EOSINOPHILS ABSOLUTE AUTO 0.26 K/mm3 (0.00-0.68); EOSINOPHILS PERCENT AUTO 3 % (0-6); Hematocrit 37.9 % (37.0-53.0); Hemoglobin 12.6 g/dL (13.5-17.5); IMMATURE GRAN ABSOLUTE AUTO 0.04 K/mm3 (0.00-0.10); IMMATURE GRAN PERCENT AUTO 1 % (0-1); LYMPHOCYTES ABSOLUTE AUTO 1.28 K/mm3 (0.84-5.20); LYMPHOCYTES PERCENT AUTO 15 % (21-46); MONOCYTES ABSOLUTE AUTO 1.24 K/mm3 (0.16-1.47); MONOCYTES PERCENT AUTO 14 % (4-13); Mean Corpuscular HGB 31.7 pg (26.0-34.0); Mean Corpuscular HGB Conc 33.2 g/dL (31.5-36.5); Mean Corpuscular Volume 95 fL (80-100); NEUTROPHILS ABSOLUTE AUTO 5.86 K/mm3 (1.96-9.15); NEUTROPHILS PERCENT AUTO 67 % (41-73); Platelet Count 144 K/mm3 (150-400); RDW Coefficient Variation 13.9 % (11.7-14.2); RDW Standard Deviation 49.2 fL (35.1-46.3); Red Blood Cell Count 3.98 M/mm3 (4.30-5.90); White Blood Cell Count 8.71 K/mm3 (4.00-11.30)
--- NOTE | 2023-07-10 05:02 | NUR ---
PT HAS REMAINED OFF OF PRECEDEX THROUGH THE NIGHT. TOLERATING TUBE FEEDING WELL. HAS HAD LARGE BM THIS NIGHT. HAS BEEN BEEN MEDICATED WITH 2 MG ATIVAN AT TIMES OF INCREASE IN CIWA SCORING. THIS DONE WITH GOOD RELIEF. PT HAS HAD SUCTIONING DONE WITH 14 CITIZEN OF [place] AND [place] SUCTION CATHETER. THIS DONE ORALLY AND INTO AIRWAY. PT DEMONSTRATES POOR GAG REFLEX. RETURN OF LARGE AMOUNT OF WHITISH SECRETIONS. PT HAS TOLERATED THIS FAIR. HAS TOLERATED Q 2 HOUR TURNS IN BED. URINE OUTPUT HAS REMAINED GOOD. MEDICATED WITH LABATELOL PRN FOR ELEVATION OF BLOOD PRESSURES. NO FURTHER FEVER SPIKES NOTED FOR PT. WILL CONTINUE TO MONITOR PT, AND WILL REPORT OFF TO ONCOMING RN.
[2023-07-10 05:15] LABS: Albumin, Blood 2.1 g/dL (3.4-5.0); Anion Gap 4 mmol/L (6-16); Blood Urea Nitrogen 21 mg/dL (8-24); Bun/Creatinine Ratio 17.9 (12.0-20.0); CO2, Blood 31 mmol/L (21-32); Calcium, Blood 7.9 mg/dL (8.5-10.1); Chloride, Blood 113 mmol/L (98-108); Creatinine, Blood 1.17 mg/dL (0.60-1.20); Glomerular Filtration Rate 68 (60-); Glucose, Blood 238 mg/dL (70-99); Magnesium, Blood 1.8 mg/dL (1.6-2.4); Phosphorus, Blood 2.2 mg/dL (2.5-4.9); Potassium, Blood 3.3 mmol/L (3.5-5.5); Sodium, Blood 148 mmol/L (136-145)
--- NOTE | 2023-07-10 08:00 | NUR ---
INITIAL ASSESSMENT PATIENT SLEEPING SOUNDLY UPON ENTERING ROOM. PATIENT MINIMALLY RESPONSIVE TO NOXIOUS STIMULI. PATIENT RECEIVED PRN ATIVAN AROUND 0600 THIS AM FOR ETOH WITHDRAWAL. CIWA SCORE CURRENTLY 4. NO GAG REFLEX NOTED WHEN PATIENT NT SUCTIONED AND DEEP SUCTIONED THROUGH MOUTH. PATIENT HAS NO SIGNS OF PAIN NOTED AT THIS TIME. PATIENT HAS TEMP OF 99.3 DEGREES FAHRENHEIT THIS AM. LUNGS COARSE THROUGHOUT. PATIENT ON AIRVO AT 45 L AND 61% FIO2. PATIENT HAS WEAK, MOIST COUGH. UNABLE TO OBTAIN ANY SECRETIONS WHEN SUCTIONED. PATIENT IN ST, HR IN THE LOW 100S. SBP 1-TEENS TO 130S. ABD MILDLY DISTENDED, SOFT, WITH NORMOACTIVE BOWEL SOUNDS NOTED. DATE OF LAST BM DOCUMENTED YESTERDAY. PATIENT ON PIVOT 1.5 TF AT GOAL RATE OF 30 MLS/ HOUR. FLYNN DRAINING YELLOW COLORED URINE. BRUISES NOTED TO R LEG AND BUES. COCCYX/ SACRUM REDDENED; MEPILEX APPLIED. NS TKO. KPHOS REPLACEMENT STARTED FOR POTASSIUM OF 3.3 AND PHOSPHORUS OF 2.2 EARLY THIS MORNING. BLOOD SUGAR 196 THIS AM. PATIENT RECEIVED COMPLETE BED BATH. BED LOW, CALL LIGHT IN REACH. CARE CONTINUES.
--- NOTE | 2023-07-10 12:30 | NUR ---
PATIENT HAS TEMP OF 99.7 DEGREES FAHRENHEIT. HR IN THE LOW 100S. SBP IN THE 160S. BLOOD SUGAR 285; COVERAGE GIVEN. PATIENT STILL REMAINS OBTUNDED. NO OTHER ACUTE CHANGES TO NOTE ON AT THIS TIME. CARE CONTINUES.
--- NOTE | 2023-07-10 16:50 | NUR ---
PATIENT HAS TEMP OF 99.7 DEGREES FAHRENHEIT. HR IN THE 120S. SBP IN THE 150S. BLOOD SUGAR 226; COVERAGE ADMINISTERED. NO OTHER ACUTE CHANGES TO NOTE ON AT THIS TIME. CARE CONTINUES.
--- NOTE | 2023-07-10 18:16 | NUR ---
SHIFT SUMMARY PATIENT REMAINED OBTUNDED AND RESPONDING ONLY TO NOXIOUS STIMULI THIS SHIFT. NO PRN ATIVAN GIVEN THIS SHIFT. PATIENT HAD NO GAG REFLEX ALL DAY UNTIL VERY END OF SHIFT. PATIENT HAD TMAX OF 99.7 DEGREES FAHRENHEIT THIS SHIFT. PATIENT DID NOT SHOWS SIGNS OF PAIN OR DISCOMFORT THIS SHIFT. PATIENT REMAINED ON AIRVO 45 L AND 61% FIO2 THIS SHIFT. PATIENT CONTINUED TO HAVE MOIST, WET, WEAK COUGH. PATIENT REMAINED IN ST, HR LOW 100S TO 120S. SBP 1-TEENS TO 170S. PRN HYDRALAZINE GIVEN OT THIS SHIFT. NO BM THIS SHIFT. TF REMAINED AT GOAL RATE OF 30 MLS/ HOUR THIS SHIFT. FLYNN DRAINED 1400 MLS OF YELLOW COLORED URINE THIS SHIFT. NO CHANGES TO SKIN NOTED THIS SHIFT. PATIENT HAD COMPLETE BED BATH. NS TKO. PATIENT HAD KPHOS AND CALCIUM REPLACEMENTS THIS SHIFT. LONG ACTING INSULIN DOSE INCREASED THIS SHIFT. BLOOD SUGARS RANGED FROM 196 TO 285 THIS SHIFT. BED LOW, CALL LIGHT IN REACH. REPORT WILL BE GIVEN TO ASSUMING BUCKET WASH OPERATOR NURSE SHORTLY.
--- NOTE | 2023-07-10 19:26 | NUR ---
ASSUMED CARE OF PT AT 1900. REPORT RECEIVED AT BEDSIDE. PT PRESENTS IN BED. ON AIRVO WITH 45 LITER FLOW AND 61 PERCENT FIO2. PT OPENS EYES UPON TACTILE STIMULI. WAS UNABLE TO ELICIT RESPONSE TO SQUEEZING FINGERS. WILL REVIEW CHART AND PLAN OF CARE FOR THIS PT.
[2023-07-11] VITALS (51 sets, daily range): BP systolic 104–183; BP diastolic 61–149
[2023-07-11 03:57] LABS: Hematocrit 36.6 % (37.0-53.0); Hemoglobin 12.1 g/dL (13.5-17.5); Mean Corpuscular HGB 31.6 pg (26.0-34.0); Mean Corpuscular HGB Conc 33.1 g/dL (31.5-36.5); Mean Corpuscular Volume 96 fL (80-100); Mean Platelet Volume 12.5 fL (9.1-12.4); Platelet Count 162 K/mm3 (150-400); RDW Coefficient Variation 13.8 % (11.7-14.2); Red Blood Cell Count 3.83 M/mm3 (4.30-5.90); White Blood Cell Count 9.13 K/mm3 (4.00-11.30)
[2023-07-11 04:19] LABS: Albumin, Blood 1.8 g/dL (3.4-5.0); Albumin/Globulin Ratio 0.4 (0.8-1.8); Bilirubin, Total 0.2 mg/dL (0.1-1.0); Bun/Creatinine Ratio 17.5 (12.0-20.0); Calcium, Blood 7.8 mg/dL (8.5-10.1); Creatinine, Blood 1.14 mg/dL (0.60-1.20); Globulin, Blood 4.4 g/dL (2.2-4.0); Magnesium, Blood 1.8 mg/dL (1.6-2.4); Phosphorus, Blood 1.9 mg/dL (2.5-4.9); Potassium, Blood 3.3 mmol/L (3.5-5.5); Total Protein, Blood 6.2 g/dL (6.4-8.2)
--- NOTE | 2023-07-11 05:37 | NUR ---
PT REMAINS WITH CONFUSION. PULLS AGAINST WRIST RESTRAINTS. RESISTS CARE. HAS BEEN TURNED Q 2 HOURS IN BED. URINE OUTPUT QUANTITY SUFFICIENT. HAVE NOTED LESS AIRWAY CONGESTION THIS NIGHT. ADMINISTERED TYLENOL ONCE FOR LOW GRADE FEVER. TOLERATING TUBE FEEDING AT GOAL. HAVE NOT GIVEN ANY ATIVAN AND HAS REMAINED OFF PRECEDEX DRIP THROUGHOUT THE SHIFT. PT HAS UTTERED FEW WORDS THIS SHIFT WHICH IS IMPROVEMENT. REMAINS ON AIRVO. MAINTAINS SATURATIONS > 90 PERCENT. WILL CONTINUE TO MONITOR PT, AND WILL REPORT OFF TO ONCOMING RN.
--- NOTE | 2023-07-11 08:11 | NUR ---
AM NOTE... ASSUMED CARE OF PT AT 0700. PT IS A&O TO SELF ONLY AT THIS TIME, HE WILL OPEN HIS EYES TO VERBAL STIMULI AND MOANS/YELLS OUT BUT DOES NOT FOLLOW COMMANDS. HE IS ON AIRVO AT 45L AND 61% WITH O2 SATS>90%. L/S CLEAR IN THE UPPER LOBES COARSE IN THE LOWER LOBES, RR 18-22. HE IS IN SR IN THE 80'S-90'S BP IS STABLE WITH MAPS>65. TRACE EDEMA IS NOTED TO THE TOPS OF HIS FEET. TEMP IS 100.5, TEMP FLYNN IS PATENT AND DRAINING TO GRAVITY. SOFT WRIST RESTRAINTS ARE IN PLACE TO PREVENT PT FROM PULLING LINES/TUBES. WILL CONTINUE TO MONITOR
[2023-07-11 14:47] LABS: Bun/Creatinine Ratio 18.1 (12.0-20.0); Calcium, Blood 7.5 mg/dL (8.5-10.1); Creatinine, Blood 1.05 mg/dL (0.60-1.20); Potassium, Blood 3.6 mmol/L (3.5-5.5)
--- NOTE | 2023-07-11 17:37 | NUR ---
SHIFT SUMMARY.... THE PT CONTINUES TO BE CONFUSED, HE WAKES TO VERBAL STIMULI BUT DOES NOT FOLLOW COMMANDS. THE PT HAS BEEN FEBRILE THIS SHIFT WITH A TMAX OF 102.5, PT WAS MEDICATED PER EMAR WITH TYLENOL WITH LOWEST TEMP 100.3. HE CONTINUES TO BE ON AIRVO AT 45L AND 50% WITH O2 SATS>90%. PT WAS UP IN THE CHAIR FOR MOST OF THIS SHIFT. FLYNN IS PATENT AND DRAINING TO GRAVITY. TUBE FEED IS RUNNING PER ORDERS. WILL CONTINUE TO MONITOR UNTIL REPORT IS GIVEN TO ONCOMING RN.
--- NOTE | 2023-07-11 20:18 | NUR ---
PATIENT RESTING IN BED, OPENS EYES SLIGHTLY WITH STIMULI. NOT FOLLOWING DIRECTIONS BUT ABLE TO PETERSEN GENERALIZED WEAKNESS. YELLS OUT WITH REPOSITIONING, SHAKING HEAD NO TO PAIN, YES TO BEING STARTLED. SPEECH IS GARBLED AND DIFFICULT TO UNDERSTAND. MOIST COUGH WITH SMALL AMT OF WHITE SPUTUM SUCTIONED FROM MOUTH. LUNG SOUNDS CLEARED WITH COUGH, REMAIN DECREASED BASES. AIRVO 45L FIO2 47% IN PLACE. DOBHOFF TO RIGHT NARE WITH PIVOT 1.5 AT GOAL RATE OF 30 CC/HR AND WATER 200 CC Q 4HR INFUSING. PATIENT INCONT OF MEDIUM BROWN SOFT LOOSE STOOL, ATTENDS IN PLACE. TYLENOL GIVEN FOR FEVER.
[2023-07-12] VITALS (14 sets, daily range): BP systolic 119–169; BP diastolic 58–101
[2023-07-12 04:09] LABS: BASOPHILS ABSOLUTE AUTO 0.03 K/mm3 (0.00-0.23); BASOPHILS PERCENT AUTO 0 % (0-2); EOSINOPHILS ABSOLUTE AUTO 0.42 K/mm3 (0.00-0.68); EOSINOPHILS PERCENT AUTO 5 % (0-6); Hematocrit 34.5 % (37.0-53.0); Hemoglobin 11.6 g/dL (13.5-17.5); IMMATURE GRAN PERCENT AUTO 1 % (0-1); LYMPHOCYTES ABSOLUTE AUTO 1.46 K/mm3 (0.84-5.20); LYMPHOCYTES PERCENT AUTO 17 % (21-46); MONOCYTES ABSOLUTE AUTO 1.71 K/mm3 (0.16-1.47); MONOCYTES PERCENT AUTO 20 % (4-13); Mean Corpuscular HGB 31.5 pg (26.0-34.0); Mean Corpuscular HGB Conc 33.6 g/dL (31.5-36.5); Mean Corpuscular Volume 94 fL (80-100); Mean Platelet Volume 12.8 fL (9.1-12.4); NEUTROPHILS ABSOLUTE AUTO 4.85 K/mm3 (1.96-9.15); NEUTROPHILS PERCENT AUTO 57 % (41-73); Platelet Count 208 K/mm3 (150-400); RDW Coefficient Variation 13.4 % (11.7-14.2); RDW Standard Deviation 45.8 fL (35.1-46.3); Red Blood Cell Count 3.68 M/mm3 (4.30-5.90); White Blood Cell Count 8.57 K/mm3 (4.00-11.30)
[2023-07-12 04:32] LABS: Calcium, Blood 7.6 mg/dL (8.5-10.1); Phosphorus, Blood 2.3 mg/dL (2.5-4.9); Potassium, Blood 3.8 mmol/L (3.5-5.5)
--- NOTE | 2023-07-12 05:48 | NUR ---
SUMMARY PATIENT SLEEPING OFF AND ON T/O NIGHT. FREQUENTLY PUTTING LEFT LEG OUT OF BED. NIGHT HAS PROGRESSED PATIENT MORE CONSISTENT WITH FOLLOWING DIRECTIONS AND SPEECH APPEARS TO BE CLEARING, BUT NOT ALWAYS ANSWERING QUESTIONS. DOBHOFF REMAINS IN PLACE WITH PIVOT 1.5 AT GOAL RATE OF 30 CC/HR AND WATER 200 CC Q4HR. INCONT OF SOFT LOOSE BROWN STOOL TWICE DURING THE NIGHT. BILAT MITTS REMAIN IN PLACE TO HELP KEEP NG AND AIRVO IN PLACE. AIRVO 45L FIO2 50% WHILE SLEEPING ON LEFT SIDE BIOX DOWN TO 88% REQUIRING INCREASE IN FIO2. MOIST COUGH CONTINUES WITH SMALL AMT OF WHITE SPUTUM.
--- NOTE | 2023-07-12 15:18 | NUR ---
I TALKED TO THE PT'S AND GAVE UPDATES.
--- NOTE | 2023-07-12 17:33 | NUR ---
SHIFT SUMMARY PT IS A&OX2-3. T/O THE DAY HE HAS HAD IMPROVED MENTATION AND HAS BEEN ABLE TO START ANSWERING QUESTIONS. THIS EVENING HE IS GETTING ANXIOUS ABOUT FOOD AND WANTING TO GO HOME. HE IS RECIEVING TUBE FEEDING AT THE GOAL RATE OF 30ML/HE AND A 200ML FLUSH EVERY 4 HOURS. ON TELE THE PT HAS BEEN SR 90'S-100'S, AND HE HAS BEEN ON 5L HFNC ALL DAY. THE PT STARTED THE DAY IN ICU 11 AND TRANSFERED TO PCU 09 THIS AFTERNOON. THE PT IS STILL BEDREST/CHAIR FAST W/ LIFT ASSITANCE FOR TX. THE PT HAS BEEN TRYING TO PULL AT LINE T/O THE DAY WITH MITTEN ON/OFF. HE CAN BE FORGETFUL. HE HAS HAD SUPERVISED BREAKS IN THE RESTRAINTS. PT TOLERATING RESTRAINTS WELL. HE HAS HAS A LOW GRADE FEVER TODAY AND HAS GOTTEN TYLENOL PT. THE PT AND MYSELF HAVE TALKED TO THE AND UPDATED HER ON CARE. FIRE IGNITION RISK HAS BEEN ASSESSED AND EDUCATION HAS BEEN PROVIDED.
--- NOTE | 2023-07-12 19:00 | NUR ---
PT IS GETTING ANXIOUS AND A NICOTINE PATCH WAS ORDERED. HIS TEMPATURE IS CLIMBING SO I GAVE HIM 650MG OF TYLENOL. BED ALARM ON, MITS IN PLACE, CURTAIN OPEN FOR NURSES STATION VIEW.
[2023-07-13] VITALS (7 sets, daily range): BP systolic 92–146; BP diastolic 56–81
--- NOTE | 2023-07-13 05:58 | NUR ---
RAIL TECHNICIAN SUMMARY PT PULLING AT LINES THROUGHOUT SHIFT. AT WRITING OF THIS NOTE, PT HAS PULLED OUT DOBHOFF FROM R NARE, AND REORIENTATION NECESSARY. PRIOR TO THIS PT HAS NOT BEEN ABLE TO PULL LINES HAS HAD MITTS ON. PT CONTINUALLY ASKING FOR WATER, HIS WALLET, HIS CANE, STATING HE WANTS TO GO HOME. PT UNABLE TO BEAR WEIGHT AND TRANSFER TO BEDSIDE COMMODE ATTEMPTED THIS SHIFT WITHOUT SUCCESS. PT DID USE BEDPAN WITHOUT OUTPUT. 02 SATS HAVE BEEN MAINTAINED ABOVE 90% ON 7LO2 VIA HFNC. TEMPERATURE INCREASED TO 100.8 CORE, AND PT WAS ALSO C/O HEADACHE SO MEDICATED WITH PT TYLENOL. 0600 PT LOPRESSOR WILL BE HELD NO ACCESS SINCE DOBHOFF PULLED. OTHERWISE, NO ACUTE CHANGES THIS SHIFT.
--- NOTE | 2023-07-13 06:23 | NUR ---
CALL TO DR LAWTON TO NOTIFY ABOUT DOBHOFF, STATES OK TO LEAVE OUT PENDING SPEECH EVAL TODAY. OK TO HOLD LOPRESSOR DUE TO REMOVAL OF DOBHOFF.
[2023-07-13 06:29] LABS: BASOPHILS ABSOLUTE AUTO 0.04 K/mm3 (0.00-0.23); BASOPHILS PERCENT AUTO 1 % (0-2); EOSINOPHILS ABSOLUTE AUTO 0.29 K/mm3 (0.00-0.68); EOSINOPHILS PERCENT AUTO 4 % (0-6); Hematocrit 34.6 % (37.0-53.0); Hemoglobin 11.5 g/dL (13.5-17.5); IMMATURE GRAN ABSOLUTE AUTO 0.05 K/mm3 (0.00-0.10); IMMATURE GRAN PERCENT AUTO 1 % (0-1); LYMPHOCYTES ABSOLUTE AUTO 1.28 K/mm3 (0.84-5.20); LYMPHOCYTES PERCENT AUTO 16 % (21-46); MONOCYTES ABSOLUTE AUTO 1.43 K/mm3 (0.16-1.47); MONOCYTES PERCENT AUTO 18 % (4-13); Mean Corpuscular HGB 31.2 pg (26.0-34.0); Mean Corpuscular HGB Conc 33.2 g/dL (31.5-36.5); Mean Corpuscular Volume 94 fL (80-100); Mean Platelet Volume 12.6 fL (9.1-12.4); NEUTROPHILS ABSOLUTE AUTO 4.79 K/mm3 (1.96-9.15); NEUTROPHILS PERCENT AUTO 61 % (41-73); Platelet Count 281 K/mm3 (150-400); RDW Coefficient Variation 13.2 % (11.7-14.2); RDW Standard Deviation 45.5 fL (35.1-46.3); Red Blood Cell Count 3.69 M/mm3 (4.30-5.90); White Blood Cell Count 7.88 K/mm3 (4.00-11.30)
[2023-07-13 06:48] LABS: Magnesium, Blood 2.1 mg/dL (1.6-2.4)
[2023-07-13 06:49] LABS: Albumin, Blood 1.6 g/dL (3.4-5.0); Anion Gap 5 mmol/L (6-16); Blood Urea Nitrogen 22 mg/dL (8-24); Bun/Creatinine Ratio 22.9 (12.0-20.0); CO2, Blood 27 mmol/L (21-32); Chloride, Blood 108 mmol/L (98-108); Creatinine, Blood 0.96 mg/dL (0.60-1.20); Glomerular Filtration Rate 87 (60-); Glucose, Blood 173 mg/dL (70-99); Phosphorus, Blood 1.9 mg/dL (2.5-4.9); Potassium, Blood 3.5 mmol/L (3.5-5.5); Sodium, Blood 140 mmol/L (136-145)
--- NOTE | 2023-07-13 08:51 | NUR ---
Pt is alert, somewhat oriented, and cooperative. Mitts removed. pt states that he will not pull on any lines/tubes/cords. The pt pulled his Dobhoff feeding tube out on maintenance technician 2nd shift. Speech therapy evaluation ordered, but she is unable to see the patient until later this morning. She recommended doing the Angier swallow evaluation at bedside now, and she will come later. Pt passed the bedside Angier swallow evaluation. Puree diet ordered. Able to wean oxygen down from 7 l/min to 3 l/min this morning. Pt is slightly febrile with core temperature 100.1 measured by Kirby catheter. Kirby is in place for accurate Intake and output, but as he is cooperative and making his needs known he could probably use a urinal for voiding. Kirby clamped with view to d/c after bladder training today. Pt was instructed to call staff with his call light if he feels like he needs to pee. He verbalized understanding.
--- NOTE | 2023-07-13 11:10 | NUR ---
Pt back in bed after some work with occupational therapy. Pt had very low tolerance for activity. Speech therapist here to see the patient now. Pt had feeling of bladder fullness 1.5 hours after it was clamped. Unclamped and drained; now reclamped for ongoing bladder training.
--- NOTE | 2023-07-13 11:44 | NUR ---
Able to wean down to 2 l/min n.c. on his oxygen. Tylenol given for temperature 101.2 and his c/o back aches. He is sitting up eating after working with the speech therapist.
--- NOTE | 2023-07-13 13:37 | NUR ---
Asked pt if he felt need to void; he said "I just did". Noted that mckeon is still clamped, but some urine leakage around the catheter apparently as the attends are damp yellow, small area. ATtends change and pericare. Mckeon unclamped and noted driaining clear yellow urine.
--- NOTE | 2023-07-13 14:02 | NUR ---
Mirta carlson. Pt is sitting up, eating lunch after Dr. Olsen came to see him. SpO2 87-90% on room air while eating. Pt is now wearing 1.5 l/min of O2 during the meal.
--- NOTE | 2023-07-13 15:09 | NUR ---
Telephone report given to María Wagner RN. Pt to be transferred to room 350 shortly.
--- NOTE | 2023-07-13 19:19 | NUR ---
SHIFT SUMMARY PATIENT TRANSFERRED TO UNIT AROUND 1400 ON ROOM AIR RESTING. 1.5-2LPM WITH EXERTION OR SLEEP AT THIS TIME. PATIENT GRADUATED TO MECHANICAL SOFT DIET TODAY BUT ADA WAS NOT ADDED FOR LUNCH, BEFORE DINNER BG 374, CALL TO DR MCNEILL TO NOTIFY OF BG, GIVEN 15 UNITS HUMILIN R AND [facility] SOFT DIET MODIFIED TO ADA FOR DINNER. NO ADDITIONAL ORDERS RECIEVED. BED IN LOW POSITION. PATIENT CALLING AT TIMES AOX4 BUT FORGETFUL. CALL LIGHT IN REACH. BED ALARM ON.
[2023-07-14] VITALS (7 sets, daily range): BP systolic 98–152; BP diastolic 54–89
--- NOTE | 2023-07-14 05:31 | NUR ---
NOC SHIFT SUMMARY: PATIENT IS IMPULSIVE GETTING OUT OF BED. ALERT AND OREINTED X4. BOWEL MOVEMENT LAST NIGHT. C/O PAIN TO BACK. IV FENTANYL GIVEN WITH GOOD EFFECT. BLOOD SUGARS AC & HS. CALL LIGHT WITHIN REACH. BED IN LOW POSITION.
--- NOTE | 2023-07-14 19:35 | NUR ---
SHIFT SUMMARY PATIENT WITH PAIN TODAY, DID NOT DO MUCH WITH PT/OT DUE TO PAIN, MEDICATED PER EMAR, DR MCNEILL NOTIFIED AND ADDED HYDROCODONE FOR PAIN. BG ALSO ABOVE 300 THIS AFTERNOON AND EVENING. BED IN LOW POSITION, CALL LIGHT IN REACH. PATIENT DOES NOT CALL. BED ALARM ON. PATIENT IS FORGETFUL OF LIMITATIONS.
[2023-07-15] VITALS (7 sets, daily range): BP systolic 120–156; BP diastolic 62–86
--- NOTE | 2023-07-15 05:34 | NUR ---
NOC SHIFT SUMMARY: PATIENT HAS CONDOM CATH IN PLACE. NORCO GIVEN TWICE FOR PAIN IN NECK/BACK. UP WITH 2 ASSIST. PT WORKING WITH PATIENT. PATIENT ALERT AND ORIENTED X4. WORKING ON PLACEMENT TO SNF. CALLS APPROPRIATELY. BED IN LOW POSITION. CALL LIGHT WITHIN REACH.
[2023-07-15 07:17] LABS: Hematocrit 33.9 % (37.0-53.0); Hemoglobin 11.2 g/dL (13.5-17.5)
[2023-07-15 07:38] LABS: Albumin, Blood 1.7 g/dL (3.4-5.0); Anion Gap 10 mmol/L (6-16); Blood Urea Nitrogen 20 mg/dL (8-24); Bun/Creatinine Ratio 20.1 (12.0-20.0); CO2, Blood 24 mmol/L (21-32); Calcium, Blood 8.6 mg/dL (8.5-10.1); Chloride, Blood 104 mmol/L (98-108); Creatinine, Blood 0.99 mg/dL (0.60-1.20); Glomerular Filtration Rate 83 (60-); Glucose, Blood 336 mg/dL (70-99); Phosphorus, Blood 2.6 mg/dL (2.5-4.9); Potassium, Blood 4.1 mmol/L (3.5-5.5); Sodium, Blood 138 mmol/L (136-145)
[2023-07-15 13:34] LABS: Glucose, Blood 557 mg/dL (70-99)
--- NOTE | 2023-07-15 18:22 | NUR ---
SHIFT SUMMARY: PT A/O X 3, STANDBY ASSIST. PT HAD BLOOD SUGAR OF 556 AT LUNCHTIME. PT WAS ASYMPTOMATIC. 18 UNITS NOVOLIN R GIVEN PER ORDER. BLOOD SUGAR AT DINNERTIME WAS 227. PT HAS NO OTHER COMPLAINTS OTHER THAN BEING TIRED. DIETARY CONSULT PLACED BUT DIESEL ENGINE TESTER ALREADY GONE FOR THE DAY. PT WAS ON TELE THIS MORNING AND WAS REPORTED TO BE IN NSR.
[2023-07-16 02:05] VITALS: BP 160/85
--- NOTE | 2023-07-16 06:48 | NUR ---
SHIFT SUMMARY NO EVENTS OVERNIGHT
[2023-07-16 08:46] VITALS: BP 143/91
[2023-07-16 14:43] VITALS: BP 105/64
[2023-07-16] MEDS ORDERED: MULVITB PO (16:45)
[2023-07-16] MEDS ORDERED: MELATONIN5 M1 PO (16:46)
[2023-07-16] MEDS ORDERED: HUMULIN R100 UNIT/2 (16:46)
[2023-07-16] MEDS ORDERED: PANT40 PO (16:47)
[2023-07-16] MEDS ORDERED: METO50ER PO (16:47)
[2023-07-16] MEDS ORDERED: B-1100 M1 PO (16:47)
[2023-07-16] MEDS ORDERED: NICO21TP TOP (16:47)
--- NOTE | 2023-07-16 17:59 | NUR ---
DISCHARGE SUMMARY: PT DISCHARGED HOME WITH HOME HEALTH. PT AND NEIGHBOR CAME TO DIRECTOR OF PUBLIC WORKS PT. ASSISTED PT WITH PACKING UP BELONGINGS. EDUCATED PT ON DISCHARGE MEDICATIONS AND INSTRUCTIONS. PT EDUCATED ON HOW TO USE INSULIN NEEDLES FOR HUMULIN R. PT STATED HE HAD NO NEEDLES AT HOME. PROVIDED PT WITH NEEDLES TO GET HIM THROUGH UNTIL HE CAN GET SUPPLIES TOMORROW. PT ADVISED TO CALL [facility]. PT VU OF MEDICATIONS AND INSTRUCTIONS. PT ASSISTED WITH PACKING UP BELONGINGS AND ESCORTED TO POV VIA WC BY EBONY.
== END 2023-07-16 17:07 | disposition home health service (06) | DRG 637 ==
LOC: ER 11:45 → ICUE 16:39 → MEDS 16:39 → ERHOLD 16:39 → ICUE 07-06 08:35 → PCU 07-12 13:57 → MEDS 07-13 15:33 → ENPENDDIS 07-16 16:20 → MEDS 07-16 17:07
PROVIDERS: Emergency Medicine; Internal Medicine; Internal Medicine Critical Care Medicine; ADMIT Internal Medicine
PROC: 0T9B70Z Drainage of Bladder with Drainage Device, Via Natural or Artificial Opening (ICD-10-PCS; principal; 2023-07-05)
PROC: 0DH67UZ Insertion of Feeding Device into Stomach, Via Natural or Artificial Opening (ICD-10-PCS; 2023-07-05)
PROC: 3E03329 Introduction of Other Anti-infective into Peripheral Vein, Percutaneous Approach (ICD-10-PCS; 2023-07-05)
DX: E11.10 Type 2 diabetes mellitus with ketoacidosis without coma (principal); A41.9 Sepsis, unspecified organism; G92.8 Other toxic encephalopathy; J96.01 Acute respiratory failure with hypoxia; J18.9 Pneumonia, unspecified organism; I21.A1 Myocardial infarction type 2; N17.0 Acute kidney failure with tubular necrosis; F10.239 Alcohol dependence with withdrawal, unspecified; E87.1 Hypo-osmolality and hyponatremia; M62.82 Rhabdomyolysis; E86.9 Volume depletion, unspecified; E86.0 Dehydration; E87.6 Hypokalemia; E83.51 Hypocalcemia; E83.39 Other disorders of phosphorus metabolism; E78.5 Hyperlipidemia, unspecified; R74.01 Elevation of levels of liver transaminase levels; Y90.0 Blood alcohol level of less than 20 mg/100 ml; E87.5 Hyperkalemia; Z91.81 History of falling; Z79.4 Long term (current) use of insulin; Z79.84 Long term (current) use of oral hypoglycemic drugs; Z79.899 Other long term (current) drug therapy; Z91.148 Patient's other noncompliance with medication regimen for other reason
CPT/HCPCS: 0202U; 31720; 36415; 36600; 51702; 70450; 71045; 80047; 80048; 80053; 80069; 81001; 82140; 82330; 82550; 82803; 82947; 83036; 83690; 83735; 83880; 83935; 84100; 84132; 84145; 84295; 84300; 84443; 84484; 85014; 85018; 85025; 85027; 85610; 85730; 87040; 87070; 87086; 87205; 92526; 92610; 93005; 93010; 94760; 94762; 96365-59; 96375-59; 96376; 96376-59; 97110; 97116; 97162; 97166; 97530; 97535; 99291-25; 99292; A9270; C1751; C9113; J0360; J0456; J0612; J0696; J1650; J1815; J2060; J2560; J3010; J3411; J3480; J7030; J7042; J7050; J7060; J7120

== ENCOUNTER 2023-07-20 08:49 | Inpatient (IN) | payer BC ==
[~2023-07-20] VITALS: Ht 172.7 cm; Wt 61.8 kg
[2023-07-20] VITALS (33 sets, daily range): BP systolic 68–150; BP diastolic 46–103
[~2023-07-20 08:49] MED LIST changes: +B-1100 M1 PO; +HUMULIN R100 UNIT/2 SC; +MELATONIN5 M1 PO; +METO50ER PO; +MULVITB PO; +NICO21TP TOP; +PANT40 PO
[2023-07-20 09:31] LABS: BASOPHILS ABSOLUTE AUTO 0.12 K/mm3 (0.00-0.23); BASOPHILS PERCENT AUTO 1 % (0-2); EOSINOPHILS PERCENT AUTO 0 % (0-6); Hematocrit 35.5 % (37.0-53.0); IMMATURE GRAN ABSOLUTE AUTO 0.22 K/mm3 (0.00-0.10); IMMATURE GRAN PERCENT AUTO 1 % (0-1); LYMPHOCYTES ABSOLUTE AUTO 0.49 K/mm3 (0.84-5.20); LYMPHOCYTES PERCENT AUTO 3 % (21-46); MONOCYTES ABSOLUTE AUTO 1.73 K/mm3 (0.16-1.47); MONOCYTES PERCENT AUTO 10 % (4-13); Mean Corpuscular HGB 31.8 pg (26.0-34.0); Mean Corpuscular HGB Conc 28.2 g/dL (31.5-36.5); Mean Corpuscular Volume 113 fL (80-100); NEUTROPHILS ABSOLUTE AUTO 14.33 K/mm3 (1.96-9.15); NEUTROPHILS PERCENT AUTO 85 % (41-73); Platelet Count 597 K/mm3 (150-400); RDW Coefficient Variation 13.3 % (11.7-14.2); Red Blood Cell Count 3.14 M/mm3 (4.30-5.90); White Blood Cell Count 16.89 K/mm3 (4.00-11.30)
[2023-07-20 09:40] LABS: Source, Urine Foley catheter
[2023-07-20 09:44] LABS: Albumin, Blood 2.4 g/dL (3.4-5.0); Albumin/Globulin Ratio 0.5 (0.8-1.8); Bilirubin, Total 0.4 mg/dL (0.1-1.0); Bun/Creatinine Ratio 24.5 (12.0-20.0); Calcium, Blood 9.6 mg/dL (8.5-10.1); Creatinine, Blood 2.53 mg/dL (0.60-1.20); Globulin, Blood 4.7 g/dL (2.2-4.0); Potassium, Blood 5.3 mmol/L (3.5-5.5); Total Protein, Blood 7.1 g/dL (6.4-8.2)
[2023-07-20 09:45] LABS: Magnesium, Blood 3.6 mg/dL (1.6-2.4)
[2023-07-20 09:50] LABS: Glucose, Blood 1973 mg/dL (70-99)
[2023-07-20 09:51] LABS: BAND PERCENT MAN 1 % (0-8); BASOPHILS PERCENT MAN 0 % (0-2); EOSINOPHILS PERCENT MAN 0 % (0-6); International Normalized Ratio 1.09; LYMPHOCYTES PERCENT MAN 1 % (21-46); MONOCYTES PERCENT MAN 7 % (4-13); Prothrombin Time Results 11.4 Sec (9.7-11.5); SEG NEUTROPHILS PERCENT MAN 91 % (41-73); TOTAL CELLS COUNTED 100
[2023-07-20 09:54] LABS: Mean Platelet Volume 13.5 fL (9.1-12.4)
[2023-07-20 09:56] LABS: Appearance, Urine Hazy (Clear); Bilirubin, Urine Neg (Neg); Blood, Urine 2+ (Neg); Glucose Qualitative, Urine 4+ (Neg); Ketones, Urine 2+ (Neg); Leukocyte Esterase, Urine Neg (Neg); Nitrite, Urine Neg (Neg); Protein, Urine Neg (Neg); Urobilinogen, Urine NORM (Normal)
[2023-07-20 10:01] LABS: Color, Urine Pale Yellow (P-Yellow)
[2023-07-20 10:04] LABS: Amorphous Mod (0-Heavy); Bacteria Rare /hpf; Squamous Epithelial Cells Rare /hpf (Few)
[2023-07-20 10:05] LABS: Hyaline Casts 0-2 /lpf (0-2); Mucus Light (0-Heavy)
[2023-07-20 10:09] LABS: U Amphetamine Screen Not Detected; U Barbituate Screen DETECTED; U Benzodiazapine Screen Not Detected; U Buprenorphine Screen Not Detected; U Cannabinoids Screen Not Detected; U Cocaine Screen Not Detected; U Methadone Screen Not Detected; U Methamphetamine Screen Not Detected; U Opiates Screen Not Detected; U Oxycodone Screen Not Detected; U Phencyclidine Screen Not Detected
[2023-07-20 10:35] LABS: Ethanol (Alcohol), Blood, Med <3 mg/dL
[2023-07-20 10:37] LABS: Beta-hydroxybutyrate >138.0 mg/dL (0.2-2.8)
[2023-07-20 10:58] LABS: Base Excess Venous -20.9 mmol/L; Bicarbonate Venous 9.7 mmol/L (24.0-30.0); PCO2 Venous 35.2 mmHg (38-42); pH Blood Venous 7.05 (7.34-7.37)
[2023-07-20 13:52] LABS: Albumin/Globulin Ratio 0.5 (0.8-1.8); Bilirubin, Total 0.4 mg/dL (0.1-1.0); Bun/Creatinine Ratio 24.7 (12.0-20.0); Calcium, Blood 8.6 mg/dL (8.5-10.1); Creatinine, Blood 2.43 mg/dL (0.60-1.20); Potassium, Blood 4.7 mmol/L (3.5-5.5)
--- NOTE | 2023-07-20 14:10 | NUR ---
PT ARRIVAL... PT ARRIVED TO THE UNIT AT 1400, PT IS ALERT BUT NOT ORIENTED, HE IS THRASHING IN THE BED AND ATTEMPTING TO PULL OFF ALL LINES. HE HAS [place]STAGMUS NOTED, WELL JERKING/FLAPPING MOVEMENTS TO HIS UPPER EXTREMITIES. HE ARRIVED TO THE UNIT ON 2L NC WITH O2 SATS>90% L/S DIM T/O AND COARSE IN THE BASES. HE WAS IN SINUS TACH LOW 100'S BP SOFT BUT MAPS >65. NO EDEMA NOTED ON THIS ASSESSMENT. TEMP FLYNN IN PLACE WITH CLEAR YELLOW URINE TO GRAVITY, PT'S CORE TEMP ON ARRIVAL WAS 96.9. PT ARRIVED TO THE UNIT COVERED IN STOOL, HIS MOUTH WAS CRUSTED WITH BLACK/DARK RED EMESIS. WHEN THE PT WAS TURNED TO HIS SIDE IT WAS NOTED HIS BACK WAS COVERED WITH LONG ANIMAL HAIR, DIRT, STOOL AND SMALL MARCIAL/ROCKS. THE MARCIAL WERE STUCK INTO THE PT'S BACK. THE PT WAS GIVEN A CHG BED BATH UPON ARRIVAL TO THE UNIT. WILL CONTINUE TO MONITOR.
[2023-07-20 14:49] LABS: Glucose, Blood 1290 mg/dL (70-99)
[2023-07-20 15:41] LABS: Bun/Creatinine Ratio 25.4 (12.0-20.0); Creatinine, Blood 2.24 mg/dL (0.60-1.20); Potassium, Blood 4.3 mmol/L (3.5-5.5)
[2023-07-20 17:15] LABS: Magnesium, Blood 2.7 mg/dL (1.6-2.4)
[2023-07-20 17:34] LABS: Albumin, Blood 1.9 g/dL (3.4-5.0); Albumin/Globulin Ratio 0.5 (0.8-1.8); Bilirubin, Total 0.3 mg/dL (0.1-1.0); Bun/Creatinine Ratio 26.6 (12.0-20.0); Calcium, Blood 8.3 mg/dL (8.5-10.1); Creatinine, Blood 2.03 mg/dL (0.60-1.20); Globulin, Blood 3.6 g/dL (2.2-4.0); Phosphorus, Blood 6.1 mg/dL (2.5-4.9); Potassium, Blood 4.3 mmol/L (3.5-5.5); Total Protein, Blood 5.5 g/dL (6.4-8.2)
--- NOTE | 2023-07-20 18:11 | NUR ---
SHIFT SUMMARY.... PT WAS GIVEN A BEDBATH AND LINEN CHANGE ONCE HE ARRIVED TO THE UNIT. A PICC LINE WAS PLACED TO THE SONAL D/T POOR ACCESS AND FREQUENT BLOOD DRAWS. THE PT WAS GIVEN ATIVAN FOR THE PICC LINE PLACEMENT, THE PT RESPONDED WELL. SINCE HE ARRIVED TO THE UNIT THE PT'S O2 NEEDS INCREASED AND HE IS CURRENTLY ON 5L NC WITH O2 SATS IN THE LOW 90'S. THE PT'S BP IS SOFT, MAPS WERE IN THE MID 50'S FOR APROX 45 MINS, A LR BOLUS WAS STARTED, THE PT'S MAPS IMPROVED TO >65 BUT ARE STILL SOFT. THE PT'S INSULIN DRIP WAS AT 5.4 WHEN HE ARRIVED ON THE UNIT THIS WAS TITRATED DOWN TO 1UNIT/HR. PT HAS LR RUNNING AT 200MLS/HR AT THIS TIME. PROTONIX DRIP WAS STARTED ALONG WITH A SANDOSTATIN DRIP. A HEAD CT WAS ORDERED BUT D/T THE PT'S AGITATION THIS HAS NOT BEEN DONE. WILL CONTINUE TO MONITOR UNTIL REPORT IS GIVEN TO ONCOMING RN.
[2023-07-20 19:10] LABS: Hematocrit 23.9 % (37.0-53.0); Mean Corpuscular HGB Conc 33.5 g/dL (31.5-36.5); Mean Platelet Volume 12.2 fL (9.1-12.4); Platelet Count 482 K/mm3 (150-400); RDW Coefficient Variation 12.4 % (11.7-14.2); RDW Standard Deviation 41.8 fL (35.1-46.3); Red Blood Cell Count 2.58 M/mm3 (4.30-5.90); White Blood Cell Count 15.53 K/mm3 (4.00-11.30)
--- NOTE | 2023-07-20 19:15 | NUR ---
CARE ASSMPTION DURING BEDSIDE SHIFT REPORT Panda BEACH RN THE PT IS LYING IN BED IN BILAT WIST RESTRAINTS. SPO2 >90% ON 5L NC. PT OPENS HIS EYE BRIEFLY BUT DOES NOT MAINTAIN EYE CONTACT. PT DOES NOT AKNOWLEDGE STAFF WHEN BEING SPOKEN TO. SPO2 >90% ON 5L NC. BP WNL AND STABLE. MONITOR SHOWING SR 80'S. TEMP FLYNN IN PLACE DRAINING CLEAR YELLOW URINE. INSULIN GTT RUNNING AT 1 UNIT/HR. LR RUNNING AT 200ML/HR. PROTONIX AND SANDOSTATIN GTT'S RUNNING.
[2023-07-20 19:19] LABS: Mean Corpuscular Volume 93 fL (80-100)
[2023-07-20 19:21] LABS: Bun/Creatinine Ratio 27.7 (12.0-20.0); Calcium, Blood 8.7 mg/dL (8.5-10.1); Creatinine, Blood 1.95 mg/dL (0.60-1.20); Potassium, Blood 4.6 mmol/L (3.5-5.5)
[2023-07-20 19:49] LABS: Glucose, Blood 720 mg/dL (70-99)
[2023-07-20 20:42] LABS: Glucose, Blood 658 mg/dL (70-99)
[2023-07-20 21:46] LABS: Bun/Creatinine Ratio 28.7 (12.0-20.0); Calcium, Blood 8.8 mg/dL (8.5-10.1); Creatinine, Blood 1.74 mg/dL (0.60-1.20); Potassium, Blood 4.5 mmol/L (3.5-5.5)
[2023-07-20 22:22] LABS: Base Excess Venous -3.6 mmol/L; Bicarbonate Venous 21.4 mmol/L (24.0-30.0); PCO2 Venous 46.3 mmHg (38-42)
[2023-07-20 22:41] LABS: Bun/Creatinine Ratio 27.7 (12.0-20.0); Calcium, Blood 8.7 mg/dL (8.5-10.1); Creatinine, Blood 1.77 mg/dL (0.60-1.20); Potassium, Blood 4.3 mmol/L (3.5-5.5)
[2023-07-21] VITALS (55 sets, daily range): BP systolic 69–174; BP diastolic 47–134
[2023-07-21 02:24] LABS: Hematocrit 25.7 % (37.0-53.0); Hemoglobin 8.8 g/dL (13.5-17.5)
[2023-07-21 02:51] LABS: Bun/Creatinine Ratio 27.3 (12.0-20.0); Calcium, Blood 8.8 mg/dL (8.5-10.1); Creatinine, Blood 1.54 mg/dL (0.60-1.20); Potassium, Blood 3.9 mmol/L (3.5-5.5)
[2023-07-21 06:00] LABS: BASOPHILS ABSOLUTE AUTO 0.05 K/mm3 (0.00-0.23); BASOPHILS PERCENT AUTO 0 % (0-2); EOSINOPHILS ABSOLUTE AUTO 0.02 K/mm3 (0.00-0.68); EOSINOPHILS PERCENT AUTO 0 % (0-6); Hematocrit 25.1 % (37.0-53.0); Hemoglobin 8.6 g/dL (13.5-17.5); IMMATURE GRAN ABSOLUTE AUTO 0.08 K/mm3 (0.00-0.10); IMMATURE GRAN PERCENT AUTO 1 % (0-1); LYMPHOCYTES ABSOLUTE AUTO 2.14 K/mm3 (0.84-5.20); LYMPHOCYTES PERCENT AUTO 14 % (21-46); MONOCYTES PERCENT AUTO 9 % (4-13); Mean Corpuscular HGB Conc 34.3 g/dL (31.5-36.5); Mean Corpuscular Volume 93 fL (80-100); Mean Platelet Volume 11.8 fL (9.1-12.4); NEUTROPHILS PERCENT AUTO 76 % (41-73); Platelet Count 430 K/mm3 (150-400); RDW Coefficient Variation 12.6 % (11.7-14.2); RDW Standard Deviation 42.3 fL (35.1-46.3); Red Blood Cell Count 2.69 M/mm3 (4.30-5.90); White Blood Cell Count 14.99 K/mm3 (4.00-11.30)
--- NOTE | 2023-07-21 06:20 | NUR ---
GROUNDS WORKER SUMMARY PT BEGAN SHIFT VERY LETHARGIC HOWEVER HE BEGAN BECOMING MORE AWAKE AND AGITATED SHORTLY INTO THE SHIFT. PT WILL OPEN HIS EYES BUT NOT MAINTAIN EYE CONTACT. PT SAYING WORDS BUT NOT ANSWER STAFF WHEN ASKED QUESTIONS. PT HAS BEEN VERY RESTLESS FIDGETING IN BED AND PULLING AT LINES/CORDS DESPITE BEING IN BUE RESTRAINTS. PT'S CIWA ELEVATED THIS SHIFT AND GIVEN SEVERAL DOSES OF ATIVAN W MINIMAL EFFECT. PT'S BLOOD GLUCOSE TRENDING DOWN THIS SHIFT ON THE INSULIN GTT DOWN TO <200. INSULIN GTT REMAINS ON THE PT WAS PLACED ON D5W DUE TO CONTINUED ELEVATION OF HIS SODIUM LEVELS. PT ON SANDOSTATIN AND PROTONIX DRIPS ALL SHIFT. MONITOR SHOWING SR 80'S-90'S THIS SHIFT. BP WNL AND STABLE THIS SHIFT. PT'S TEMP WNL AND STABLE THIS SHIFT. PT'S FLYNN CATHETER PATENT AND DRAINED 1700ML CLEAR YELLOW URINE THIS SHIFT. SPO2 >90% ON 5L NC THIS SHIFT. WILL REPORT TO ONCOMING RN.
[2023-07-21 06:24] LABS: Albumin, Blood 1.9 g/dL (3.4-5.0); Albumin/Globulin Ratio 0.5 (0.8-1.8); Bilirubin, Total 0.2 mg/dL (0.1-1.0); Bun/Creatinine Ratio 26.5 (12.0-20.0); Calcium, Blood 8.6 mg/dL (8.5-10.1); Creatinine, Blood 1.36 mg/dL (0.60-1.20); Globulin, Blood 3.8 g/dL (2.2-4.0); Total Protein, Blood 5.7 g/dL (6.4-8.2)
--- NOTE | 2023-07-21 08:27 | NUR ---
AM NOTE... ASSUMED CARE OF PT AT 0700, PT IS ALERT BUT NOT ORIENTED, HE IS THRASHING AND PULLING AT THE RESTRAINTS AND LINES WHEN HE IS ABLE TO GRASP THEM. PT DOES NOT FOLLOW COMMANDS OR RESPOND TO QUESTIONS. HE IS IN SR IN THE 80'S BP IS STABLE WITH SBPs 150'S-160'S. NO EDEMA IS NOTED ON THIS ASSESSMENT. HE IS ON 5L NC WITH O2 SATS IN THE LOW 90'S. L/S DIM T/O COARSE IN THE BASES. BT PRESENT AND HYPOACTIVE, ABD IS TENDER TO PALPATION. FLYNN IS IN PLACE AND DRAINING CLEAR YELLOW URINE TO GRAVITY. INSULIN DRIP IS RUNNING AT 4 UNIT/HR AND TITRATED UP TO 5 UNITS/HR. WILL CONTINUE TO MONITOR.
[2023-07-21 09:33] LABS: Hemoglobin 9.1 g/dL (13.5-17.5)
[2023-07-21 15:27] LABS: Bun/Creatinine Ratio 22.9 (12.0-20.0); Calcium, Blood 8.6 mg/dL (8.5-10.1); Creatinine, Blood 1.09 mg/dL (0.60-1.20); Potassium, Blood 3.3 mmol/L (3.5-5.5)
--- NOTE | 2023-07-21 18:01 | NUR ---
SHIFT SUMMARY.... STARTING AT 1315 THE PT'S CBG DROPPED DOWN TO 73, D5 1-/2NS WAS RUNNING AT 200MLS/HR. THE INSULIN DRIP WAS RUNNING AT 4U/HR THIS WAS STOPPED AND CBG WAS CHECKED APROX 1 HR LATER WHICH WAS 69. PROVIDER WAS NOTIFED AND THE INSULIN DRIP WAS STOPPED. HYPOGLYCEMIA PROTOCOL WAS STARTED AND 250MLS OF D5 WAS BOLUSED IN. PT'S CBG HAS BEEN CHECKED Q1 HR, D5 1/2NS CONTINUES TO RUN AT 200MLS/HR. THE PT'S OTHER VS HAVE BEEN STABLE, PT'S BP HAS BEEN SOFT AT TIMES BUT MAPS HAVE BEEN >65. HE CONTINUES TO BE ON 5L NC WITH O2 SATS 88-92%. PT CONTINUES TO BE CONFUSED AND PULLING AT LINES. WILL CONTINUE TO MONITOR UNTIL REPORT IS GIVEN TO ON COMING RN.
--- NOTE | 2023-07-21 19:00 | NUR ---
CARE ASSUMPTION DURING BEDSIDE SHIFT REPORT WITH YONG RN THE PT IS SLEEPING COMFORTABLY IN BED WEARING 6L NC. PT HAS D5 1/2NS RUNNING AT 200ML/HR. INSULIN GTT IS ON STAND-BY. PT'S MONITOR SHOWING SR 80'S. BP WNL AND STABLE. PT HAS FLYNN THAT IS DRAINING CLEAR YELLOW URINE. UPON INITIAL ASSESSMENT PT'S ARM AROUND HIS POWERGLIDE IS RED AND SLIGHTLY SWOLLEN. THIS WAS PREVIOUSLY INFUSING W INSULIN GTT. POWERGLIDE DC'D. THIS MAY EPLAIN PT'S DROP IN BLOOD GLUCOSE ON DAYSHIFT HE APPEARS TO HAVE HAS A DECENT AMOUNT OF FLUID BUILT UP IN HIS ARM, DIRECTOR OF MEDICARE NOTIFIED.
[2023-07-22] VITALS (28 sets, daily range): BP systolic 60–153; BP diastolic 39–128
[2023-07-22 04:36] LABS: BASOPHILS ABSOLUTE AUTO 0.09 K/mm3 (0.00-0.23); BASOPHILS PERCENT AUTO 1 % (0-2); EOSINOPHILS ABSOLUTE AUTO 0.11 K/mm3 (0.00-0.68); EOSINOPHILS PERCENT AUTO 1 % (0-6); Hematocrit 30.2 % (37.0-53.0); Hemoglobin 10.1 g/dL (13.5-17.5); IMMATURE GRAN ABSOLUTE AUTO 0.03 K/mm3 (0.00-0.10); IMMATURE GRAN PERCENT AUTO 0 % (0-1); LYMPHOCYTES ABSOLUTE AUTO 2.15 K/mm3 (0.84-5.20); LYMPHOCYTES PERCENT AUTO 22 % (21-46); MONOCYTES ABSOLUTE AUTO 0.65 K/mm3 (0.16-1.47); MONOCYTES PERCENT AUTO 7 % (4-13); Mean Corpuscular HGB 31.2 pg (26.0-34.0); Mean Corpuscular HGB Conc 33.4 g/dL (31.5-36.5); Mean Corpuscular Volume 93 fL (80-100); Mean Platelet Volume 11.4 fL (9.1-12.4); NEUTROPHILS ABSOLUTE AUTO 6.86 K/mm3 (1.96-9.15); NEUTROPHILS PERCENT AUTO 69 % (41-73); Platelet Count 424 K/mm3 (150-400); RDW Coefficient Variation 12.9 % (11.7-14.2); RDW Standard Deviation 43.9 fL (35.1-46.3); Red Blood Cell Count 3.24 M/mm3 (4.30-5.90); White Blood Cell Count 9.89 K/mm3 (4.00-11.30)
[2023-07-22 04:49] LABS: Albumin, Blood 2.1 g/dL (3.4-5.0); Albumin/Globulin Ratio 0.5 (0.8-1.8); Bilirubin, Total 0.2 mg/dL (0.1-1.0); Bun/Creatinine Ratio 18.3 (12.0-20.0); Calcium, Blood 8.4 mg/dL (8.5-10.1); Creatinine, Blood 0.88 mg/dL (0.60-1.20); Globulin, Blood 4.4 g/dL (2.2-4.0); Potassium, Blood 3.2 mmol/L (3.5-5.5); Total Protein, Blood 6.5 g/dL (6.4-8.2)
--- NOTE | 2023-07-22 06:26 | NUR ---
HOMEBIRTH MIDWIFE SUMMARY PT HAS REMAINED ALERT BUT VERY DISORIENTED FIDGETING IN BED ATTEMPTING TO PULL AT LINES AND EXIT THE BED. CIWA'S ELEVATED DUE TO AGITATION BUT PT DOES NOT HAVE ANY TREMOR. PT STARTED ON PRECEDEX GTT BUT HIS BP WOULD DROP W MAP <65 ON THE LOWEST DOSE OF 0.1 MCG/MIN. PT'S CBG'S ELEVATED AT THE START OF THE SHIFT BUT DID BECOME STABLE AROUND 200 AND W NA LEVEL NORMALIZING PROVIDER CONTACTED AND INSULIN GTT AND D5 1/2 NS TURNED OFF. LANTUS ORDERED BUT WAS HELD PT'S CBG WAS 150 AND HE IS NPO. PT'S MONITOR SHOWING SR 60'S-90'S THIS SHIFT. PT'S FLYNN PATENT AND DRAINED 3900 ML CLEAR YELLOW URINE THIS SHIFT. PT DID NOT HAVE A BM THIS SHIFT. PT AFEBRILE THIS SHIFT. WILL REPORT TO ONCOMING RN.
--- NOTE | 2023-07-22 08:04 | NUR ---
[place] of Care: Care assumed at 0700hr. Patient sleeping, easily roused to verbal stimuli. Remains drowsy when awake and minimally cooperative. Patient moans/yells "leave me alone". Able to verbalize his name and , this stopped cooperating with staff. Appears confused to place, time/date, reason for admission but difficulty to accurately assess. Moves all extremities spontaneously. VSS, SpO2 96% on 2L/NC, decreases to 85-87% without NC. No s/s of pain, discomfort, SOB, or dyspnea. PICC line to SONAL patent and intact. Kirby cath patent, draining clear yellow urine. Will continue to monitor.
--- NOTE | 2023-07-22 17:31 | NUR ---
Shift Summary: No significant changes throughout shift. Patient became more alert throughout the morning and following simple commands. Remains confused to place and event, oriented to self. Mostly sleeping throughout shift, but awakens occasionally. Slightly restless in bed when awake, turning [id number] and pulling at gown and cardiac leads. More accepting of care, calm, but has difficulty following simple directions when providing care. Continually pulls on gown or cardiac leads when staff attempting to replace these items. Denies pain throughout shift. VSS. PICC line and mckeon cath remain patent and intact. Sliding scale Regular insulin started at 1200hr per Dr. Gold, along with x15u Lantus given this morning at approx 0930hr. 1200hr blood glucose over 350, 5u sc Regular insulin given and result called to Dr. Vega. Received instructions to repeat blood glucose in 2hr. Repeat level of 271, results again called to Dr. Vega, no new orders received at that time, continue with current insulin regimen. Will continue to monitor until report to NOC shift RN.
--- NOTE | 2023-07-22 20:00 | NUR ---
ASSUMED CARE OF PT AT 1900. REPORT RECEIVED AT BEDSIDE. PT PRESENTS IN BED. MAKES EYE CONTACT. DOES NOT PARTICIPATE IN REPORT. WHILE RECEIVING REPORT, PT TRIES TO REMOVE HIS MONITORING. NEEDS TO BE REMINDED TO LEAVE THESE IN PLACE. WILL REVIEW CHART AND PLAN OF CARE FOR THIS PT.
[2023-07-23] VITALS: BP 154/76
--- NOTE | 2023-07-23 01:01 | NUR ---
REPORT GIVEN TO ANNA BANUELOS PT TO BE MOVED TO ROOM MEDICAL 362. PT MADE AWARE OF TRANSFER. HAVE REMOVED FLYNN CATHETER EARLIER IN EVENING, AND PT HAS VOIDED 50 ML SINCE. BED ALARM ON BED FOR PT SAFETY.
[2023-07-23 01:21] VITALS: BP 140/80
[2023-07-23] MEDS ORDERED: Acetaminophen650 M1 PO (01:35)
--- NOTE | 2023-07-23 05:07 | NUR ---
NOC SHIFT SUMMARY: PT. TRANSFERRED FROM ICU THIS MORNING. VERY CONFUSED. PULLS OFF TELE LEADS. PULLED OFF CONDOM CATHETER. NO C/O PAIN. PATIENT IS INCONTINENT OF URINE. DISCHARGE PLAN POSSIBLY TO SNF. PATIENT ALSO ADMITTED FOR DKA. BLOOD SUGARS EVERY 6 HOURS. NPO. CALL LIGHT WITHIN REACH. BED IN LOW POSITION.
[2023-07-23 05:41] LABS: BASOPHILS ABSOLUTE AUTO 0.06 K/mm3 (0.00-0.23); BASOPHILS PERCENT AUTO 1 % (0-2); EOSINOPHILS ABSOLUTE AUTO 0.07 K/mm3 (0.00-0.68); EOSINOPHILS PERCENT AUTO 1 % (0-6); Hematocrit 33.2 % (37.0-53.0); Hemoglobin 11.3 g/dL (13.5-17.5); IMMATURE GRAN ABSOLUTE AUTO 0.04 K/mm3 (0.00-0.10); IMMATURE GRAN PERCENT AUTO 1 % (0-1); LYMPHOCYTES ABSOLUTE AUTO 2.32 K/mm3 (0.84-5.20); LYMPHOCYTES PERCENT AUTO 27 % (21-46); MONOCYTES PERCENT AUTO 8 % (4-13); Mean Corpuscular HGB 31.7 pg (26.0-34.0); Mean Corpuscular Volume 93 fL (80-100); Mean Platelet Volume 11.2 fL (9.1-12.4); NEUTROPHILS ABSOLUTE AUTO 5.38 K/mm3 (1.96-9.15); NEUTROPHILS PERCENT AUTO 63 % (41-73); Platelet Count 413 K/mm3 (150-400); RDW Standard Deviation 44.6 fL (35.1-46.3); Red Blood Cell Count 3.56 M/mm3 (4.30-5.90); White Blood Cell Count 8.57 K/mm3 (4.00-11.30)
[2023-07-23 06:17] LABS: Albumin, Blood 2.3 g/dL (3.4-5.0); Albumin/Globulin Ratio 0.5 (0.8-1.8); Bilirubin, Total 0.3 mg/dL (0.1-1.0); Calcium, Blood 9.2 mg/dL (8.5-10.1); Creatinine, Blood 0.9 mg/dL (0.60-1.20); Globulin, Blood 4.6 g/dL (2.2-4.0); Potassium, Blood 3.4 mmol/L (3.5-5.5); Total Protein, Blood 6.9 g/dL (6.4-8.2)
[2023-07-23 07:53] VITALS: BP 115/87
[2023-07-23 14:40] VITALS: BP 105/77
--- NOTE | 2023-07-23 17:14 | NUR ---
DAYSHIFT SUMMARY Patient alert & oriented, very tired slept late this morning. RN performed ALVARADO bedside swallow eval. Patient passed swallow test, ADA diet ordered. CBG at lunch was 256, humalog 5u administred. Checked CBG at 1515, too high for CBG machine to read. STAT blood glucose ordered. ordered humalog 12u given now, and recheck CBG in 1 hour and NPO.
[2023-07-23 18:35] LABS: Glucose, Blood 612 mg/dL (70-99)
[2023-07-23 19:20] LABS: Glucose, Blood 418 mg/dL (70-99)
--- NOTE | 2023-07-23 19:28 | NUR ---
Blood glucose drawn at 1727, resulted at 1840 reult 612. Notified MD, instructed to give humalog 10u one time, and infuse LR bolus. Patient NPO until CBG <350. Lab came to draw new blood glucose. Explained plan to NOC RN, and RN will f/u with NOC resident with new results.
[2023-07-23 20:43] VITALS: BP 107/78
[2023-07-24 02:25] VITALS: BP 98/86
[2023-07-24 05:12] LABS: BASOPHILS ABSOLUTE AUTO 0.07 K/mm3 (0.00-0.23); BASOPHILS PERCENT AUTO 1 % (0-2); EOSINOPHILS ABSOLUTE AUTO 0.22 K/mm3 (0.00-0.68); EOSINOPHILS PERCENT AUTO 2 % (0-6); Hematocrit 31.9 % (37.0-53.0); Hemoglobin 10.5 g/dL (13.5-17.5); IMMATURE GRAN ABSOLUTE AUTO 0.04 K/mm3 (0.00-0.10); IMMATURE GRAN PERCENT AUTO 0 % (0-1); LYMPHOCYTES ABSOLUTE AUTO 2.45 K/mm3 (0.84-5.20); LYMPHOCYTES PERCENT AUTO 27 % (21-46); MONOCYTES ABSOLUTE AUTO 0.84 K/mm3 (0.16-1.47); MONOCYTES PERCENT AUTO 9 % (4-13); Mean Corpuscular HGB 31.1 pg (26.0-34.0); Mean Corpuscular HGB Conc 32.9 g/dL (31.5-36.5); Mean Corpuscular Volume 94 fL (80-100); Mean Platelet Volume 11.4 fL (9.1-12.4); NEUTROPHILS ABSOLUTE AUTO 5.36 K/mm3 (1.96-9.15); NEUTROPHILS PERCENT AUTO 60 % (41-73); Platelet Count 323 K/mm3 (150-400); RDW Coefficient Variation 12.9 % (11.7-14.2); RDW Standard Deviation 44.4 fL (35.1-46.3); Red Blood Cell Count 3.38 M/mm3 (4.30-5.90); White Blood Cell Count 8.98 K/mm3 (4.00-11.30)
[2023-07-24 05:38] LABS: Albumin, Blood 2.1 g/dL (3.4-5.0); Albumin/Globulin Ratio 0.5 (0.8-1.8); Bilirubin, Total 0.3 mg/dL (0.1-1.0); Bun/Creatinine Ratio 23.8 (12.0-20.0); Calcium, Blood 8.8 mg/dL (8.5-10.1); Creatinine, Blood 0.93 mg/dL (0.60-1.20); Potassium, Blood 3.7 mmol/L (3.5-5.5); Total Protein, Blood 6.1 g/dL (6.4-8.2)
--- NOTE | 2023-07-24 06:25 | NUR ---
SHIFT SUMMARY A/OX3. COOPERATIVE. CONTINENT. 1 PERSON STANDBY TO BATHROOM. REDRAW GLUCOSE FROM LAB AT BEGINNINGOF SHIFT WAS >[address] ISRAEL WHO ORDERED 10 UNITS GLARGINE. PT WAS NPO UNTIL SUGARS WERE BELOW 350. RECHECKED SUGARS AT 2300 AND O200. SUGARS WERE INCREASING BUT PATIENT HAD 3 SUGAR FREE SNACKS T/O NIGHT. PT STATES HE COULD NOT GO TO SLEEP EASILY TONIGHT AND REQUESTED A SLEEP AID AT 0400, EDUCATED PT THIS IS TOO LATE IN THE SHIFT TO GIVE SLEEP AID SO HE DOES NOT SLEEP THROUGH THE DAY. ABLE TO MAKE NEEDS KNOWN. CALL LIGHT IN REACH. BED LOCKED IN LOW POSITION.
[2023-07-24 07:27] VITALS: BP 108/72
[2023-07-24 14:39] VITALS: BP 101/65
--- NOTE | 2023-07-24 16:51 | NUR ---
DAYSHIFT SUMMARY Patient AOx3. Morning CBG was 363, notified medical careteam, instructed to give schedule humalog & lantus. Held breakfast, rechecked CBG was 253. redordered humalog sliding scale. Patient ate 100% of breakfast & Humalog SSI given at 0935. Patient doing well today, worked with PT and walked halls. Vitals stable. Possible DC tomorrow. Will continue plan of care.
--- NOTE | 2023-07-24 18:35 | NUR ---
Patient asked why we were checking his CBGs ac/hs. Patient told RN that he checks his CBG & give himself 1 injection of Lantus once a day. I explained that he blood sugars have been uncontrolled and thats why the MD ordered sliding scale & scheduled insulin. Home med rec shows that patient takes Humalin PRN & Lantus 30 BID.
[2023-07-24 20:29] VITALS: BP 92/75
[2023-07-25 02:30] VITALS: BP 111/66
[2023-07-25 05:27] LABS: BASOPHILS ABSOLUTE AUTO 0.06 K/mm3 (0.00-0.23); BASOPHILS PERCENT AUTO 1 % (0-2); EOSINOPHILS ABSOLUTE AUTO 0.32 K/mm3 (0.00-0.68); EOSINOPHILS PERCENT AUTO 4 % (0-6); Hematocrit 29.3 % (37.0-53.0); Hemoglobin 9.8 g/dL (13.5-17.5); IMMATURE GRAN ABSOLUTE AUTO 0.04 K/mm3 (0.00-0.10); IMMATURE GRAN PERCENT AUTO 1 % (0-1); LYMPHOCYTES ABSOLUTE AUTO 2.48 K/mm3 (0.84-5.20); LYMPHOCYTES PERCENT AUTO 28 % (21-46); MONOCYTES ABSOLUTE AUTO 0.91 K/mm3 (0.16-1.47); MONOCYTES PERCENT AUTO 10 % (4-13); Mean Corpuscular HGB 32.1 pg (26.0-34.0); Mean Corpuscular HGB Conc 33.4 g/dL (31.5-36.5); Mean Corpuscular Volume 96 fL (80-100); Mean Platelet Volume 11.9 fL (9.1-12.4); NEUTROPHILS ABSOLUTE AUTO 4.99 K/mm3 (1.96-9.15); NEUTROPHILS PERCENT AUTO 57 % (41-73); Platelet Count 294 K/mm3 (150-400); RDW Standard Deviation 45.5 fL (35.1-46.3); Red Blood Cell Count 3.05 M/mm3 (4.30-5.90)
[2023-07-25 06:26] LABS: Albumin/Globulin Ratio 0.5 (0.8-1.8); Bilirubin, Total 0.2 mg/dL (0.1-1.0); Bun/Creatinine Ratio 30.5 (12.0-20.0); Calcium, Blood 8.2 mg/dL (8.5-10.1); Creatinine, Blood 0.95 mg/dL (0.60-1.20); Globulin, Blood 3.7 g/dL (2.2-4.0); Potassium, Blood 3.9 mmol/L (3.5-5.5); Total Protein, Blood 5.7 g/dL (6.4-8.2)
--- NOTE | 2023-07-25 06:47 | NUR ---
SHIFT SUMMARY A/OX3. STARTED SHIFT TEARFUL/FRUSTRATED OF SITUATION. ANXIOUS ABOUT NEW REGIMEN OF INSULIN AND WHAT THAT WILL LOOK LIKE AT HOME AFTER DISCHARGE. PATIENT DID NOT SLEEP. SNACKED ON MULTIPLE SNACKS LAST NIGHT. PATIENT STATED HE WAS UNALBE TO NEWSPERSON LAST PRESCRIPTION OF NEW INSULIN FROM PHARMACY DUE TO NOT HAVING A RIDE. SHIFT OTHERWISE UNREMARKABLE. ABLE TO MAKE NEEDS KNOWN. CALL LIGHT IN REACH. BED LOCKED IN LOW POSITION. FORGETS LIMITIATIONS. BED ALARM ON.
[2023-07-25 07:49] VITALS: BP 135/86
[2023-07-25] MEDS ORDERED: HUMALOG JU100 UNIT/2 SC (10:26)
--- NOTE | 2023-07-25 15:42 | NUR ---
DISCHARGE SUMMARY PT AxOx4. PLEASANT AND COOPERATIVE WITH CARE. PT REPORTED FEELING ANXIOUS ABOUT CARING FOR HIS DIABETES WHEN HE RETURNS HOME. PT IS DISCHARGING HOME TODAY WITH SPOUSE. PT AND HIS SPOUSE, ARABELLA WERE EXTENSIVELY EDUCATED ON BLOOD GLUCOSE MONITORING AND SUPPLIES AND ORDERS TO ADMINISTER INSULIN. EDUCATED PT VIA DEMONSTRATION AND WAS ABLE TO DEMONSTRATE SKILL BACK TO THIS RN. PT CONTINUED TO EXPRESS STRESS THAT HE WAS NOT GOING TO BE ABLE TO "GET IT." THERAPEUTIC COMMUNICATION PROVIDED BY MYSELF AND PT'S SPOUSE. ALSO DISCUSSED DC HOME MED LIST, NEED TO MAKE FOLLOW UP APPT WITH PCP AND PATIENT EDUCATION ON DIAGNOSIS AND OTHER RELATED TOPICS. PT AND HIS SPOUSE VERBALIZE UNDERSTANDING AND DECLINE FURTHER QUESTIONS AT THIS TIME. PT WAS SAFELY ESCORTED OUT VIA WC WITH EYELET OPERATOR.
== END 2023-07-25 14:21 | disposition home or self-care (01) | DRG 637 ==
LOC: ER 08:49 → ICUE 12:49 → MEDS 12:49 → ICUE 13:38 → MEDS 07-23 01:13
PROVIDERS: Emergency Medicine; Family Medicine; Student in an Organized Health Care Education/Training Program; ADMIT Internal Medicine
PROC: 0T9B70Z Drainage of Bladder with Drainage Device, Via Natural or Artificial Opening (ICD-10-PCS; principal; 2023-07-20)
PROC: HZ2ZZZZ Detoxification Services for Substance Abuse Treatment (ICD-10-PCS; 2023-07-20)
DX: E11.10 Type 2 diabetes mellitus with ketoacidosis without coma (principal); G93.41 Metabolic encephalopathy; J96.01 Acute respiratory failure with hypoxia; J18.9 Pneumonia, unspecified organism; N17.9 Acute kidney failure, unspecified; R65.10 Systemic inflammatory response syndrome (SIRS) of non-infectious origin without acute organ dysfunction; K92.0 Hematemesis; E11.00 Type 2 diabetes mellitus with hyperosmolarity without nonketotic hyperglycemic-hyperosmolar coma (NKHHC); N18.9 Chronic kidney disease, unspecified; E11.22 Type 2 diabetes mellitus with diabetic chronic kidney disease; I95.9 Hypotension, unspecified; E86.0 Dehydration; I12.9 Hypertensive chronic kidney disease with stage 1 through stage 4 chronic kidney disease, or unspecified chronic kidney disease; Y90.0 Blood alcohol level of less than 20 mg/100 ml; E78.5 Hyperlipidemia, unspecified; F17.210 Nicotine dependence, cigarettes, uncomplicated; F10.20 Alcohol dependence, uncomplicated; Z79.4 Long term (current) use of insulin; Z79.811 Long term (current) use of aromatase inhibitors; Z79.899 Other long term (current) drug therapy
CPT/HCPCS: 36415; 51702; 71045; 76705; 80048; 80053; 81001; 82010; 82140; 82272; 82550; 82607; 82746; 82803; 82947; 83036; 83605; 83735; 83880; 83930; 84100; 84145; 84146; 84484; 85014; 85018; 85025; 85027; 85610; 85730; 86850; 86900; 86901; 87040; 93306; 94762; 96361; 96365; 96368; 96375; 97110; 97116; 97162; 99285-25; C1751; C9113; J0456; J0696; J1200; J1630; J1650; J1815; J2060; J2354; J3010; J3411; J3480; J7030; J7042; J7050; J7060; J7070; J7120